=== PATIENT | male | born 1955 | race Caucasian/White ===

== ENCOUNTER 2019-08-24 18:33 | Inpatient (IN) | payer MEDICARE ==
[~2019-08-24] VITALS: Ht 182.9 cm; Wt 85.3 kg
[~2019-08-24 18:33] MED LIST: ACETAMINOPHEN-1 EAC1 PO; ASPIR 8181 MG; ATIVAN0.5 MG PO; AUGMENTIN 875-1 EACH PO; B12; BACTRIM DS TAB1 EACH PO; BACTROBAN22 GM TP; CALCIUM PO; CINNAMON; CIPRO500 MG PO; CLEOCIN HCL150 MG PO; COMBIVENT RESPIM4 GM IH; FISH OIL; FLEXERIL; HYDROCODON-ACE1 EAC7 PO; HYDROCODONE; HYDROCODONE-AP1 EAC6 PO; LATUDA80 MG PO; LEXAPRO 10 MG T10 M1; LIPITOR 20 MG T20 M1; LISINOPRIL5 MG PO; LOPRESSOR50 MG; METFORMIN HCL500 MG PO; MULTIVITAMIN; SYMBICORT160 MCG/4. INH; TESSALON PERLE100 MG PO; TRAMADOL 50 MG50 MG; TRILEPTAL600 MG PO; VALIUM5 MG; VENTOLIN HFA 1818 GM INH
[2019-08-24 19:00] LABS: ABSOLUTE BASOPHILS 0.1 thou/uL (0.0-0.2); ABSOLUTE EOSINOPHILS 0.2 thou/uL (0.0-0.7); ABSOLUTE LYMPHOCYTES 1.2 thou/uL (0.8-5.3); ABSOLUTE MONOCYTES 0.4 thou/uL (0.0-1.2); ABSOLUTE NEUTROPHILS 7.2 thou/uL (1.6-8.1); HEMATOCRIT 41.1 % (42.0-52.0); HEMOGLOBIN 14.3 gm/dL (14.0-18.0); LYMPHOCYTES 12.9 %; MCH 29.4 pg (26.0-34.0); MCHC 34.9 g/dL (28.0-37.0); MCV 84.3 fL (80.0-100.0); MONOCYTES 4.2 %; MPV 7.4 fl. (7.2-11.1); NUCLEATED RBCS 0 /100WBC; PLATELET COUNT* 251 thou/uL (150-400); POLYS 79.9 %; RBC 4.87 mil/uL (4.50-6.00)
[2019-08-24 19:07] LABS: CALCIUM 8.6 mg/dL (8.5-10.1); CREATININE 1.9 mg/dL (0.6-1.3); POTASSIUM 3.9 mmol/L (3.5-5.1)
[2019-08-24 19:10] LABS: APTT 26.9 Seconds (25.0-31.3); PROTIME 9.8 Seconds (9.20-11.50)
[2019-08-24 19:12] LABS: ALBUMIN 3.1 g/dL (3.4-5.0); TOTAL BILIRUBIN 0.3 mg/dL (<0.1-1.0); TOTAL PROTEIN 6.3 g/dL (6.4-8.2)
[2019-08-24 19:32] VITALS: BP 228/134
[2019-08-24 20:26] LABS: CHOLESTEROL 224 mg/dL (<200); HDL CHOLESTEROL 51 mg/dL (>40); LDL CHOLESTEROL 148 mg/dL (<100); TC:HDL 4.4 Ratio (Not establshd); TRIGLYCERIDE 125 mg/dL (<150); VLDL 25 mg/dL (<40)
[2019-08-24 20:31] LABS: SERUM ASSESSMENT Clear
[2019-08-24 23:07] LABS: URINE BILIRUBIN NEGATIVE (Negative); URINE BLOOD TRACE (Negative); URINE CLARITY CLEAR; URINE COLOR YELLOW; URINE GLUCOSE-RANDOM 1+ (Negative); URINE KETONES NEGATIVE (Negative); URINE LEUKOCYTES NEGATIVE (Negative); URINE NITRITE NEGATIVE (Negative); URINE PROTEIN 3+ (Negative); URINE UROBILINOGEN 0.2 E.U./dl (0.2-1.0)
[2019-08-24 23:17] VITALS: BP 168/79
[2019-08-24 23:20] LABS: COARSE GRANULAR CASTS 0-3 Few /LPF (None Seen); CRYSTALS None Seen /LPF (None Seen); FINE GRANULAR CASTS 0-3 Few /LPF (None Seen); HYALINE CASTS 0-3 Few /LPF (None Seen); MUCUS 4-6 Moderate strn/LPF (None Seen); SQUAMOUS 0-3 Few /LPF (0-3); URINE RBC 3-10 Few /HPF (0-2); URINE WBC 0-5 Rare /HPF (0-5)
[2019-08-25 03:59] VITALS: BP 159/107
[2019-08-25 07:15] VITALS: BP 144/93
[2019-08-25 10:28] VITALS: BP 188/89
--- NOTE | 2019-08-25 10:35 | EKG ---
[place] [address] ELECTROCARDIOGRAM REPORT Name: SANDY DOUGHERTY III Room: [place] [address] ADM IN .R.#: [id number] Admission: 08/24/19 Attend Phys: Elza Chavez MD Discharge: Date of : 57 Report #: [id number] THIS REPORT FOR: //name// [facility] ED Test Date: 2019-08-24 Test Time: 19:13:34 Pat Name: SANDY DOUGHERTY Department: Room: [facility] Gender: M Wringer Machine Operator: [place] : 1955 Requested By: Booker Mcdonnell Order Number: [id number] MD: Adelfo Moralez Measurements Intervals [place] Rate: 78 P: 72 VT: 190 QRS: -67 QRSD: 100 T: 79 QT: 415 QTc: 473 Interpretive Statements Sinus rhythm Left anterior fascicular block No previous ECG available for comparison Electronically Signed On 08-25-2019 10:35:16 SCROLL SHEAR OPERATOR by Adelfo Moralez [email or web address] <ELECTRONICALLY SIGNED> By: Fe Moralez MD, [facility] 08/25/19 1035 12 12 Fe Moralez MD, [facility] /EPI
[2019-08-25 11:00] VITALS: BP 160/74
[2019-08-25 16:06] VITALS: BP 188/97
[2019-08-25 20:00] VITALS: BP 181/93
--- NOTE | 2019-08-25 20:04 | NUR ---
PT ARRIVED TO ROOM 209 AT APPROX 1055. PT A/O X4, HAS RIGHT SIDE WEAKNESS TO ARM AND LEG AND RIGHT FACIAL DROOP. NIH DONE CHARTED. 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 FALL PRECATUIONS IN PLACE, BED ALARM ON, CALL LIGHT IN REACH. PTS SISTER AND SON AT BEDISDE. DISCUSSED PLAN WITH PT AND FAMILY. PT BECAME UPSET AND TEARFUL THIS AFTERNOON ABOUT PROGNOSIS, PT GIVEN REASSURANCE. PRN MEDS GIVEN PER MAR FOR ANXIETY, PAIN AND ELEVATED BP. DISCUSSED WITH PHYSICIAN, NEW ORDERS RECIEVED. REPORT GIVEN TO RASHAUN CUENCA.
[2019-08-25 23:10] LABS: AMP/METHAMP Negative (Negative); BARBITURATES Negative (Negative); BENZODIAZEPINES Negative (Negative); COCAINE Negative (Negative); METHADONE Negative (Negative); OPIATES Negative (Negative); PCP Negative (Negative); THC POSITIVE (Negative)
[2019-08-26] VITALS (11 sets, daily range): BP systolic 121–228; BP diastolic 48–104
[2019-08-26 02:06] LABS: GLYCOHEMOGLOBIN (HGB A1C) 6.7 % (4.8-5.6)
--- NOTE | 2019-08-26 02:24 | NUR ---
ASSUMED CARE OF PATIENT AT 1900. BP REMAINS ELEVATED, HOWEVER WITHIN PARAMETERS OF PHYSICAN ORDERS. SON AT BEDSIDE. STATES HE IS VERY CONCERNED, PATIENT HAS DECLINED EVEN MORE. EDUCATION ABOUT MEDICATION AND SEEING A PHYSICIAN REGULARLY DISCUSSED. PRIMARY PHYSICIAN RETIRED, IS IN NEED OF A NEW ONE. WAS ABLE TO GET SOME SLEEP. WORKING TOWADS POC GOALS.
--- NOTE | 2019-08-26 12:49 | NUR ---
Pt is A&O. Spoke with Pt and sister in room. Pt normally resides at home alone. Has been independent. Pt uses a cane PRN for mobility, has a left leg prothesis. Has a wc that he uses PRN. Hx of HH. CM discussed probable need for acute rehab vs SNF at [place]. Sister wants to get Pt moved to a one level apartment/studio without stairs, CM provided sister with a list of senior/low income housing options. CM also discussed other possible needs that Pt may have dependent upon the progress that he makes. Pt has a son in the area that is supportive, sister lives in [place] and involved in POC. Following.
--- NOTE | 2019-08-26 14:41 | NUR ---
Dividend Deposit Voucher Clerk: Met patient and son today. Discussed stroke program. Will follow, patient was too sleepy to meet with.
--- NOTE | 2019-08-26 17:14 | 2DMMODE ---
[place] [address] 2 D/M-MODE ECHOCARDIOGRAM Name: SANDY DOUGHERTY III Room: [address] IN .R.#: [id number] Admission: 08/24/19 Attend Phys: Elza Chavez, Discharge: Date of : 57 Date of Service: 08/26/19 1713 Report #: [id number] THIS REPORT FOR: //name// APPROVED REPORT Study performed: 08/26/2019 09:10:29 EXAM: Comprehensive 2D, Doppler, and color-flow Echocardiogram BSA: 2.02 HR: 64 bpm BP: 193/91 mmHg Other Information Study Quality: Fair Indications CVA/TIA Echo Enhancing Agent Indication: Rule out Shunt Agent(s) / Amount(s) Used: Agitated Saline cc 2D Dimensions IVSd: 11.31 (7-11mm) LVOT Diam: 20.70 (18-24mm) LVDd: 45.17 mm PWd: 10.90 (7-11mm) Ascending Ao: 30.46 (22-36mm) LVDs: 29.63 (25-40mm) Aortic Root: 29.32 mm Volumes Left Atrial Volume (Systole) LA ESV Index: 13.50 mL/m2 Aortic Valve AoV Peak Pablo.: 1.27 m/s AO Peak Gr.: 6.41 mmHg LVOT Max P.19 mmHg AO Mean Gr.: 3.80 mmHg LVOT Mean P.27 mmHg LVOT Max V: 0.74 m/s AO V2 VTI: 22.36 cm LVOT Mean V: 0.53 m/s FEDERICO (VTI): 3.42 cm2 LVOT V1 VTI: 22.75 cm Mitral Valve E/A Ratio: 0.74 MV Decel. Time: 236.20 [place] [address] 2 D/M-MODE ECHOCARDIOGRAM Name: SANDY DOUGHERTY III Room: [address] IN [facility].#: [id number] Admission: 08/24/19 Attend Phys: Elza Chavez, Discharge: Date of : 57 Date of Service: 08/26/19 1713 Report #: [id number] MV E Max Pablo.: 0.60 m/s MV PHT: 68.50 ms MVA (PHT): 3.21 cm2 TDI E/Lateral E': 12.00 E/Medial E': 8.57 Medial E' Pablo.: 0.07 m/s Lateral E' Pablo.: 0.05 m/s Pulmonary Valve PV Peak Pablo.: 1.08 m/s PV Peak Gr.: 4.65 mmHg Tricuspid Valve RAP Estimate: 5.00 mmHg TR Peak Gr.: 11.58 mmHg RVSP: 16.58 mmHg PA Pressure: 16.58 mmHg Left Ventricle The left ventricle is normal size. There is normal LV segmental wall motion. Mild concentric left ventricular hypertrophy. Left ventricular systolic function is normal. The left ventricular ejection fraction is within the normal range. LVEF is 60-65%. Grade I - abnormal relaxation pattern. Right Ventricle The right ventricle is normal size. The right ventricular systolic function is normal. Atria The left atrium size is normal. Injection of bubbles documented no interatrial shunt. The right atrium size is normal. Aortic Valve Mild aortic valve sclerosis. No aortic regurgitation is present. There is no aortic valvular stenosis. Mitral Valve There is mitral annular calcification. Mitral valve leaflets are calcified. There is no mitral valve regurgitation noted. No evidence of mitral valve stenosis. Tricuspid Valve The tricuspid valve is normal in structure. Trace tricuspid regurgitation. [place] [address] 2 D/M-MODE ECHOCARDIOGRAM Name: LADONNASANDY III Room: [address]#: [id number] Admission: 08/24/19 Attend Phys: Elza Chavez, Discharge: Date of : 57 Date of Service: 08/26/19 1713 Report #: [id number] The pulmonary valve is normal in structure. There is no pulmonic valvular regurgitation. Great Vessels The aortic root is normal in size. IVC is normal in size and collapses >50% with inspiration. Pericardium There is no pericardial effusion. <Conclusion> The left ventricle is normal size. Mild concentric left ventricular hypertrophy. Left ventricular systolic function is normal. The left ventricular ejection fraction is within the normal range. LVEF is 60-65%. Grade I - abnormal relaxation pattern. The right ventricle is normal size. The left atrium size is normal. Mild aortic valve sclerosis. No aortic regurgitation is present. There is no aortic valvular stenosis. There is mitral annular calcification. Mitral valve leaflets are calcified. There is no mitral valve regurgitation noted. No evidence of mitral valve stenosis. The tricuspid valve is normal in structure. IVC is normal in size and collapses >50% with inspiration. There is no pericardial effusion. There is normal LV segmental wall motion. Injection of bubbles documented no interatrial shunt. <ELECTRONICALLY SIGNED> By: Jarret Thorne MD, FACC 08/26/19 171 12 12 Jarret Thorne MD, FACC /INF
--- NOTE | 2019-08-26 19:22 | NUR ---
ASSUMED PT CARE AT 0700, A&O X4, NIH=8, ELECTRONIC WARFARE OFFICER TRACING SINUS RHYTHM, FULL ASSESSMENT CHARTED. PT HAD EPISODE C/O 8/10 CHEST PAIN AT 1552, BP 216/101, HR 70, EKG NORMAL, NITRO GIVEN X1 AT 1555. AT 1555 PTS PAIN WAS 7/10 WITH BP 191/92 HR 70, SECOND DOSE NITRO GIVEN AT 1600. BP 165/53, HR 72 PAIN DOWN TO 6/10. PTS BP CONT TO TREND DOWN WITH NO MORE C/O CHEST PAIN. PTS BP MONITORED, DR EAST AND CARDIOLOGY NOTIFIED, HOURLY ROUNDING COMPLETED.
[2019-08-27 00:27] VITALS: BP 131/69
[2019-08-27 04:39] VITALS: BP 127/70
--- NOTE | 2019-08-27 05:17 | NUR ---
ASSUMED CARE OF PATIENT AT 1900. BP WITHIN MUCH BETTER RANGE. SPEECH IS BECOMING MORE CLEAR. IS VERY TEARFUL, WONDERING HOW HE IS GOING TO CARE FOR HIMSELF. RIGHT SIDE REMAINS COMPLETELY FLACCID. MAX ASSIST OF 3 PEOPLE TO GET HIM TO BSC. NO BM. COMPLETE BATH GIVEN, WELL FACIAL SHAVE. NO FAMILY PRESENT TONIGHT. PROGRESSING TOWARDS POC GOALS.
[2019-08-27 05:21] LABS: ABSOLUTE BASOPHILS 0.1 thou/uL (0.0-0.2); ABSOLUTE EOSINOPHILS 0.1 thou/uL (0.0-0.7); ABSOLUTE LYMPHOCYTES 1.2 thou/uL (0.8-5.3); ABSOLUTE MONOCYTES 0.6 thou/uL (0.0-1.2); ABSOLUTE NEUTROPHILS 6.4 thou/uL (1.6-8.1); BASOPHILS 0.8 %; EOSINOPHILS 1.5 %; HEMATOCRIT 36.4 % (42.0-52.0); HEMOGLOBIN 12.7 gm/dL (14.0-18.0); LYMPHOCYTES 14.2 %; MCH 29.7 pg (26.0-34.0); MCV 84.9 fL (80.0-100.0); MONOCYTES 7.2 %; MPV 7.5 fl. (7.2-11.1); NUCLEATED RBCS 0 /100WBC; PLATELET COUNT* 254 thou/uL (150-400); POLYS 76.3 %; RBC 4.29 mil/uL (4.50-6.00); RDW-CV 14.3 % (10.5-14.5); WBC 8.3 thou/uL (4.0-11.0)
[2019-08-27 05:37] LABS: CALCIUM 7.9 mg/dL (8.5-10.1); CREATININE 1.9 mg/dL (0.6-1.3); POTASSIUM 3.8 mmol/L (3.5-5.1)
[2019-08-27 08:00] VITALS: BP 189/90
[2019-08-27 11:31] VITALS: BP 159/73
--- NOTE | 2019-08-27 14:02 | NUR ---
Rehab consult pending, therapies to see today. If Pt does not qualify for acute rehab, CM to contact [facility] to see if they can accept vs SNF. Tele psych consult completed. Pt medically stable for dc.
--- NOTE | 2019-08-27 14:32 | EKG ---
[place] [address] ELECTROCARDIOGRAM REPORT Name: SANDY DOUGHERTY III Room: [address] ADM IN M.R.#: [id number] Admission: 08/24/19 Attend Phys: Elza Chavez MD Discharge: Date of : 57 Report #: [id number] THIS REPORT FOR: //name// [facility] Test Date: 2019-08-26 Test Time: 15:54:52 Pat Name: SANDY DOUGHERTY Department: Room: [address] Gender: M Math Tutor: J : 1955 Requested By: Elza Chavez Order Number: [id number] Reading MD: Payam Jain Measurements Intervals [place] Rate: 69 P: 72 NM: 195 QRS: -64 QRSD: 96 T: 105 QT: 432 QTc: 463 Interpretive Statements Sinus rhythm Left anterior fascicular block Abnormal R-wave progression, late transition Nonspecific T abnormalities, lateral leads Baseline wander in lead(s) V1 Compared to ECG 08/24/2019 19:13:34 T-wave abnormality now present Electronically Signed On 08-27-2019 14:31:20 TEACHING ASSISTANT by Payam Jain [email or web address] <ELECTRONICALLY SIGNED> By: Payam Jain MD, FACC 08/27/19 1431 1554 1554 Payam Jain MD, FACC /EPI
--- NOTE | 2019-08-27 18:30 | NUR ---
ASSUMED PT CARE AT 0700, PT A&O X4, VSS, RA, REPRODUCTION ARTIST TRACING SINUS RHYTHM, PT UP WITH MAX ASSIST TO CHAIR, UP GRADED TO REGULAR DIET/THIN LIQUIDS, CONT TO SHOW PROGRESS THROUGHOUT SHIFT, FULL ASSESSMENT CHARTED. PT CONT ON Q2 HOUR TURNS AND HOURLY ROUNDING, ALL COMPLETED.
[2019-08-27 20:00] VITALS: BP 145/80
[2019-08-27 23:55] VITALS: BP 145/84
[2019-08-28 04:11] VITALS: BP 144/74
--- NOTE | 2019-08-28 05:43 | NUR ---
PT CARE ASSUMED AT 1930. SAT MAINTAINED IN O2. ALERT AND ORIENTED X4. PT IS ANXIOUS. CALL LIGHT WITHIN REACH AND BED IN LOW POSITION. C/O PAIN, MEDICATION GIVEN PER EMAR. HOURLY ROUNDING DONE FOR PT SAFETY.
[2019-08-28 08:00] VITALS: BP 170/100
--- NOTE | 2019-08-28 09:32 | NUR ---
Met with patient to review stroke education. Planning to discharge to in rehab today.
--- NOTE | 2019-08-28 11:22 | NUR ---
Pt will dc to [facility] acute rehab today. Faxed dc orders. Updated Pt's son.
[2019-08-28 12:09] VITALS: BP 148/87
[2019-08-28] MEDS ORDERED: ASA81BEC PO (14:28)
[2019-08-28] MEDS ORDERED: CARVEDILOL12.5 MG PO (14:29)
[2019-08-28] MEDS ORDERED: HUMALOG100 UNIT/1 SUBQ (14:30)
[2019-08-28] MEDS ORDERED: NICOTINE TRANSD21 M1 (14:30)
[2019-08-28] MEDS ORDERED: LIPITOR80 MG PO (14:30)
[2019-08-28] MEDS ORDERED: PLAVIX 75 MG TA75 MG PO (14:31)
[2019-08-28] MEDS ORDERED: PROCARDIA XL60 MG PO (14:31)
[2019-08-28] MEDS ORDERED: ABILIFY 5 MG TAB5 M1 PO (14:32)
[2019-08-28 14:33] VITALS: BP 148/87
[2019-08-28 16:00] VITALS: BP 149/90
--- NOTE | 2019-08-28 19:00 | NUR ---
ASSUMED PT CARE AT 0700, PT A&O X4, RA, NANNY BABYSITTER TRACING SINUS RHYTHM, FULL ASSESSMENT ASS CHARTED. PT WAS TRANSFERRED TO IN PATIENT REHAB UNIT, FAMILY NOTIFIED, REPORT GIVEN TO BANG PARHAM. IV AND NANNY BABYSITTER REMOVED, ALL BELONGINGS SENT WITH PT. Q 2 HOUR TURN AND HOURLY ROUNDING COMPLETED.
== END 2019-08-28 19:01 | DRG 65 ==
LOC: M.ERS 18:33 → M.2W 21:07 → M.TBA-ER 21:07 → M.2W 08-25 10:27
PROVIDERS: Emergency Medicine; Family Medicine; Internal Medicine; ADMIT Internal Medicine
DX: I63.9 Cerebral infarction, unspecified (principal); N17.9 Acute kidney failure, unspecified; I16.1 Hypertensive emergency; I69.351 Hemiplegia and hemiparesis following cerebral infarction affecting right dominant side; F31.9 Bipolar disorder, unspecified; F17.210 Nicotine dependence, cigarettes, uncomplicated; I25.10 Atherosclerotic heart disease of native coronary artery without angina pectoris; E78.5 Hyperlipidemia, unspecified; I10 Essential (primary) hypertension; E11.51 Type 2 diabetes mellitus with diabetic peripheral angiopathy without gangrene; R29.704 NIHSS score 4; R82.71 Bacteriuria; F12.90 Cannabis use, unspecified, uncomplicated; R00.1 Bradycardia, unspecified; I65.21 Occlusion and stenosis of right carotid artery; N28.9 Disorder of kidney and ureter, unspecified; Z89.512 Acquired absence of left leg below knee; Z98.84 Bariatric surgery status; Z95.5 Presence of coronary angioplasty implant and graft; Z91.14 Patient's other noncompliance with medication regimen; Z82.49 Family history of ischemic heart disease and other diseases of the circulatory system

== ENCOUNTER 2019-08-28 15:39 | Inpatient (IN) | payer MEDICARE ==
[~2019-08-28] VITALS: Ht 182.9 cm; Wt 101.5 kg
[~2019-08-28 15:39] MED LIST changes: +ABILIFY 5 MG TAB5 M1 PO; +ASA81BEC PO; +CARVEDILOL12.5 MG PO; +HUMALOG100 UNIT/1 SUBQ; +LIPITOR80 MG PO; +NICOTINE TRANSD21 M1; +PLAVIX 75 MG TA75 MG PO; +PROCARDIA XL60 MG PO
[2019-08-28 19:20] VITALS: BP 148/90
--- NOTE | 2019-08-28 23:52 | NUR ---
PATIENT ADMITTED TO ROOM 322 AT 1900 PER BED. HAS RESTED IN BED SINCE. NEEDS MAX ASSIST TURNING. RT SIDE FLACCID. HAS HX OLD LT BKA AND HAS PROTHESIS IN ROOM. HAS BRUISING TO BOTTOM AND BACK FROM WHEN HE FELL AGAINST HIS OVEN AT HOME DURING HIS STROKE. TAKES MEDS WHOLE WITH APPLESAUCE. HAD ONE STICK TO RIGHT SIDE OF TONGUE AND NEEDED CUEING TO SWALLOW IT. STATES HIS RIGHT SIDE OF HIS TONGUE FELLS "NUMB". DURING ADMISSION ASSSESSMENT, PATIENT ADMITTED TO USING "POT" TO MANAGE PAIN RATHER THAN NARCOTICS, AND HE WEANED HIMSELF OFF PAIN MEDS USING POT. STATES THAT HE HAS NOT BEEN TO A PHYSICIAN FOR A FEW YEARS, AND ADMITS TO NOT TAKING CARE OF HIMSELF OR HIS DIABETES. EMOTIONAL LABILITY NOTED, CRYING AT TIMES. SPOKE ON PHONE WITH EX , SPEECH HAS SOME SLIGHT SLURRING, BUT PATIENT MAKES NEEDS KNOWN. VOIDS PER URINAL, BUT HAS BEEN SPILLING THE URINAL AND WAS INCONTINENT NOT GETTING THE URINAL IN PLACE IN TIME. DURING ASSESSMENT PATIENT DENIES CURRENT SUICIDAL THOUGHTS, BUT STATED THAT HE WISHED HE COULD RIGHT AFTER HIS STROKE AND HAD SUICIDAL THOUGHTS WHILE HE WAS LYING ON THE FLOOR BEFORE HELP ARRIVED. HE SAID THAT HIS PLAN WAS TO USE A KNIFE AND MOTIONED TO HIS ABDOMINAL AREA. HE SAYS HE CURRENTLY IS NOT SUICIDAL, BUT THESE THOUGHTS COME IN WAVES HE IS BIPOLAR. WILL BE STARTING ON NEW MED IN THE MORNING. TELE PSYCH WAS CONSULTED WHILE HE WAS ON THE TELEMETRY FLOOR. DRAFTER DETAIL NOTIFIED. THIS NURSE WAS INSTRUCTED TO ASSESS FOR SUICIDAL THOUGHTS AND NOTIFY DRAFTER DETAIL IF ANY OCCURED. PATIENT WAS INSTRUCTED TO CALL WITH ANY SUICIDAL THOUGHTS, AND HE PROMISED TO DO SO. PATIENT PLEASED WITH STARTING NEW MED IN THE MORNING. TURNED OFTEN IT IS PAINFUL TO LIE ON HIS BACK DUE TO THE BRUISING FROM HIS FALL. EDUCATED ON REHAB ROUTINE, ASSESSMENT DONE. HOURLY ROUNDS CONTINUE. BED ALARM ON. CALL LITE IN REACH.
--- NOTE | 2019-08-29 00:20 | NUR ---
C/O SWEATING, BLOOD SUGAR CHECKED. 59. GIVEN PEANUT BUTTER, BRITTNEY CRACKERS AND APPLE JUICE. WILL CONTINUE TO MONITOR.
--- NOTE | 2019-08-29 00:22 | NUR ---
C/O FEELING HOT AND SWEATY. HAD ONE TUB OF APPLESAUCE AT HS WITH BLOOD SUGAR OF 225 AT HS. BLODO SUGAR CHECKED AT THIS TIME. WAS 59. GIVEN PEANUT BUTTER, BRITTNEY CRACKERS, AND APPLE JUICE AT THIS TIME. WILL CONTINUE TO MONITOR.
--- NOTE | 2019-08-29 00:26 | NUR ---
ALSO HAS A MOBILE CARDIAC OUTPATIENT TELEMETRY PATCH SYSTEM APPLIED TO MID STERNUM. BOX AT NURSE STATION WITH MORE INFO. NOTE ON BOX SAYS TO RETURN IT ON 09/25/19. PATIENT DOES NOT KNOW MUCH ABOUT DEVICE. WILL PASS ONTO DAY SHIFT NEED FOR MORE EDUCATION.
--- NOTE | 2019-08-29 01:09 | NUR ---
BLOOD SUGAR 218. RESTING AT PRESENT.
[2019-08-29 04:00] LABS: HEMATOCRIT 35.4 % (42.0-52.0); HEMOGLOBIN 12.5 gm/dL (14.0-18.0); MCH 29.9 pg (26.0-34.0); MCHC 35.2 g/dL (28.0-37.0); MCV 84.7 fL (80.0-100.0); MPV 7.4 fl. (7.2-11.1); RBC 4.18 mil/uL (4.50-6.00); RDW-CV 14.1 % (10.5-14.5); WBC 6.9 thou/uL (4.0-11.0)
[2019-08-29 04:20] LABS: CALCIUM 7.9 mg/dL (8.5-10.1); POTASSIUM 3.7 mmol/L (3.5-5.1)
--- NOTE | 2019-08-29 06:32 | NUR ---
SLEPT MUCH OF THE NIGHT. PREFERRED TO BE LYING IN CHACON'S POSITION DUE TO PAIN IN BACK WHERE HE FELL AT HOME DURING HIS STROKE. PATIENT HAS LABILE EMOTIONS, AND TEARFUL AT TIMES. DENIES SUICIDAL THOUGHTS, STATES HE IS OVERWHELMED BY ALL HE "HAS TO DO." ENCOURAGEMENT GIVEN. GAVE HIS FIRST DOSE OF ABILIFY THIS MORNING (DUE AT 0900 FIRST DOSE) BECAUSE HE WAS HOPING IT WOULD DIMINISH HIS ANXIETY. WILL PASS THIS ON TO ONCOMING SHIFT. HOURLY ROUNDS CONTINUE. BED ALARM ON. CALL LITE IN REACH.
[2019-08-29 07:30] VITALS: BP 204/96
[2019-08-29 08:15] VITALS: BP 199/103
[2019-08-29 09:05] VITALS: BP 181/85
--- NOTE | 2019-08-29 13:36 | NUR ---
sister voices consern that pt has made statments of wanting to kill self. sister states pt has said, when i get the change i'm killing myself. i'm done. pt now in therapy with pt.
--- NOTE | 2019-08-29 13:47 | NUR ---
i have talked to pt in private and he tells me he was just saying he wanted to kill himself to aggrivate his sister and he has been stressfull today with starting therapy and understanding program. tele psych report done yesterday on tele floor before transferr to rehab unit states no acute risk at time of assesment see documentation in chart.i have discussed this with supervisor functional testing siomara badilloemployee services manager all yusuf. pt now working with ot. notified and comming to see pt.
[2019-08-29 14:20] VITALS: BP 185/88
--- NOTE | 2019-08-29 14:34 | NUR ---
Nutrition: pt admit to [facility] s/p CVA. Pt reported possible wt loss of about 10 lb in past 6 months related to living by himself and not caring about he eats. Pt reported appetite is somewhat better here. Would like Glucerna BID. Meds and labs reviewed. Lt BKA noted, hx of bariatric surgery. Assess at mild nutrition risk.
--- NOTE | 2019-08-29 16:18 | NUR ---
pt denies wanting to do harm to self. has been here and talked to pt.pt given dulcolax supp with no results yet.pt uses urinal and has spilled x2, pt reports having difficulty managing full urinal and is reminded to call for assist as needed.pt was placed to bed this afternoon per gina lift.bed alarm on. pt turned and repositioned q2 hour and prn. pt is alert and orientated.
--- NOTE | 2019-08-29 17:30 | NUR ---
SW met with pt sister and with pt to complete initial assessment, introduce self, and SW role on inpt rehab. Pt alert, oriented. Pt lives at home alone. Pt sister shared that she expects pt to need to move to LTC facility instead of apt/sr housing. Pt said his goal would be able to return home. Pt has grab bars, shower chair, RW, can, wc, leg prosthesis. Pt has hx of HH...unknown agency. SW provided sister list of LTC facilities in case that dc plan is necessary and discussed financial assistance and applying for Medicaid. SW provided welcome packet and pt signed irf bette consent form that is now in pt chart. SW to continue to follow to assist with safe dc planning.
[2019-08-29 20:18] VITALS: BP 182/95
--- NOTE | 2019-08-30 04:57 | NUR ---
ASSUMED PT CARE AT 1930. PT ALERT AND ORIENTED X4, POLITE AND COOPERATIVE WITH CARES. PT TAKES PILLS WHOLE IN APPLESAUCE. VOIDS PER URINAL. PRN TYLENOL AND ATIVAN GIVEN. BRUISING TO BACK/BUTTOCKS. PT TURNED WHEN AGREEABLE. ONE MUCOUSY STOOL THIS SHIFT. PT AWAKE OFF AND ON ALL NIGHT, WATCHING TELEVISION. SNACK GIVEN. PT STATED HE FELT TRAPPED IN BED, EXPRESSED HIS FRUSTRATION WITH HIS SITUATION AND SAID SEVERAL TIMES THAT HE HAD NOT TAKEN CARE OF HIMSELF. SPOKE AT LENGTH ABOUT HIS TWO FAILED MARRIAGES AND HIS REGRETS. USES CALL LIGHT APPROPRIATELY. CALL LIGHT AND FREQUENTLY USED ITEMS IN REACH. HOURLY ROUNDING IN PROGRESS, WILL CONTINUE TO MONITOR.
[2019-08-30 08:19] VITALS: BP 195/90
--- NOTE | 2019-08-30 10:54 | CON ---
[address] [address] CONSULTATION Name: SANDY DOUGHERTY III Room: [address] IN M.R.#: [id number] Admission: 08/28/19 Attend Phys: Wisam Barrera MD Discharge: Date of : 57 Report #: [id number] THIS REPORT FOR: //name// CC: FAM physician/PCP Wisam Barrera DATE OF SERVICE: 08/29/2019 REQUESTING PHYSICIAN: Wisam Barrera MD. REASON FOR CONSULTATION: Chronic kidney disease and recent acute kidney injury, also uncontrolled hypertension. HISTORY OF PRESENT ILLNESS: The patient is a 64-year-old gentleman who was transferred here from the acute hospital. The patient had a stroke recently. He has very uncontrolled hypertension. He has diabetes, peripheral artery disease and ongoing tobaccoism. His creatinine while he was in the hospital was around 2 and it is stage 2, it is now is 2.0, creatinine in 2015 was 1.3, then in 2016, it was 1.1, but his blood pressure has not been controlled for the last several years, so it is quite possible that creatinine of 2 is his baseline now. SOCIAL HISTORY: Positive for tobaccoism. FAMILY HISTORY: Noncontributory. MEDICATIONS: Reviewed. REVIEW OF SYSTEMS: Positive for right-sided paralysis. He denies chest pain, shortness of breath, nausea or vomiting. Rest of the systems reviewed and negative. PHYSICAL EXAMINATION: GENERAL: He is awake, alert, oriented. VITAL SIGNS: Blood pressure is 180/85, heart rate 68, afebrile. HEENT: Pupils are round. NECK: Supple. LUNGS: Clear. CARDIOVASCULAR: Regular rate. ABDOMEN: Soft. EXTREMITIES: He has right-sided paralysis. He also has a left below knee amputation. ASSESSMENT: 1. Chronic kidney disease stage 3, most likely due to uncontrolled hypertension. Cannot completely rule out acute competent, he had acute kidney injury that [place] [address] CONSULTATION Name: SANDY DOUGHERTY ALIZA Room: [address] IN [facility]#: [id number] Admission: 08/28/19 Attend Phys: Wisam Barrera MD Discharge: Date of : 57 Report #: [id number] 2. Uncontrolled hypertension. 3. Diabetes mellitus type 2. 4. Peripheral artery disease. 5. Tobaccoism. 6. History of cerebrovascular accident. PLAN: 1. Increase his Coreg to 12.5 mg twice a day and continue with Procardia. 2. Monitor his blood pressure. 3. A 2 sodium restriction in his diet. 4. Counseling to stop smoking. I discussed this case with Dr. Barrera. <ELECTRONICALLY SIGNED> By: Lennox Mayberry MD 08/30/19 1054 1020 [id number] Neo Mayberry MD /nt
--- NOTE | 2019-08-30 17:48 | NUR ---
PT HAS HAD TEARFULLNESS EARLIER THIS MORNING AND WAS GIVEN LORAZEPAM WITH GOOD EFFECT TODAY. PRN TYLENOL GIVEN FOR LOW BACK PAIN WITH GOOD EFFECT. PT TRANSFERRS WITH NURSING WITH [facility] IS UP TO W/C TO DINNINGROOM FOR SUPPER.PT IS CONTINENT OF BLADDER USEING URINAL BUT HAS TO BE PLACED IN BED AND IS UNABLE TO VOID WHILE UP IN W/C. NO BM TODAY. PT HAS TAKEN SHOWER WITH OT TODAY AND FEELS MUCH BETTER.PT HAS PRAFO BOOT FOR RT. HEAL AND WORE IT FOR A SHORT TIME THEN BECAME HOT. PT IS ALERT AND ORIENTATED AND HAS MADE NO COMMENTS ABOUT HARMING SELF AND DENIES SUCH.PT HAS BEEN ABLE TO FEED SELF AFTER CARTONS OPENED AND MEATS CUT.PT USUALLY PLESANT BUT DOES EXPRESS FEELING LIKE HE DOES NOT GET ENOUGH INFORMATION.
[2019-08-30 20:00] VITALS: BP 164/74
--- NOTE | 2019-08-30 21:41 | NUR ---
ASSUMED CARE AT 1930. PATIENT RESTING IN W/C. MCOT PATCHED CHANGED AT CHANGE OF SHIFT BECAUSE IT WAS BEEPING. ASSISTED TO BED WITH TWO PEOPLE, PER STONE LIFT. VOIDED ONCE IN W/C AND SPILLED URINAL. PATIENT CLEANED SELF. TAKES PILLS WHOLE IN APPLESAUCE. HAD REST OF TUB OF APPLESAUCE, FOUR BRITTNEY CRACKERS WITH PEANUT BUTTER, AND APPLE JUICE FOR HS SNACK. REPORTS LABILE EMOTIONS, BUT DENIES SUICIDAL THOUGHTS. REFUSED AMBIEN AT HS. RT SIDE FLACCID, ARM AND LEG SUPPORTED ON PILLOWS. IS RIGHT HANDED, BUT USES LT HAND FOR FEEDING SELF. HOURLY ROUNDS CONTINUE. BED ALARM ON. CALL LITE IN REACH.
[2019-08-31 00:28] VITALS: BP 140/86
[2019-08-31 05:40] VITALS: BP 146/84
--- NOTE | 2019-08-31 06:03 | NUR ---
SLEPT FOR PART OF THE SHIFT. WORE PRAFO BOOT ABOUT 6 HOURS. C/O MAKING IT FEEL LIKE HIS LEG IS HOT. SOME SPONEANEOUS MOVEMENT NOTED TO RLE. TEARFUL ONLY ONCE TONIGHT. REHAB ROUTINES REINFORCED. TAKES PILLS WHOLE WITH WATER IF THEY ARE SMALL, OTHERWISE WITH APPLESAUCE. HAD ANOTHER SNACK AROUND 0445. TURNING SELF TO RIGHT SIDE. HOURLY ROUNDS CONTINUE. BED ALARM ON. CALL LITE IN REACH.
[2019-08-31 07:56] VITALS: BP 166/86
[2019-08-31 09:20] LABS: HEMATOCRIT 37.9 % (42.0-52.0); HEMOGLOBIN 13.2 gm/dL (14.0-18.0); MCH 29.5 pg (26.0-34.0); MCHC 34.7 g/dL (28.0-37.0); MCV 84.9 fL (80.0-100.0); MPV 7.4 fl. (7.2-11.1); RBC 4.47 mil/uL (4.50-6.00); RDW-CV 14.3 % (10.5-14.5)
[2019-08-31 09:30] LABS: CALCIUM 7.9 mg/dL (8.5-10.1); CREATININE 2.3 mg/dL (0.6-1.3); POTASSIUM 4.2 mmol/L (3.5-5.1)
--- NOTE | 2019-08-31 15:40 | NUR ---
ASSUMED CARE AT 0730. HX OF CVA RT. SIDE FLACCID. HX OF OLD L BKA. HAS PROSTHETIC. KEVIN NOTIFIED OF NEED FOR INNER AND OUTER SLEEVE FOR PROSTHETIC. NEED TO FAX AGAIN MON MESSAGE LEFT FOR KEVIN PER PHONE CALL VOICE MESSAGE. PT. TEARFULL THIS A.M. GAVE ANXIETY MED AND GABAPENTIN PT. PARTICIPATED WITH P.T. AND O.T. IN A.M. BECAME SLEEPY AFTER THERAPIES AND SLEPT TILL LUNCH. REQUESTED WE DECREASE GABAPENTIN DOSE FROM DR. ALDANA AND CONSULTED KEVIN RE INNER AND OUTER SLEEVE FOR PROSTHETIC.
--- NOTE | 2019-08-31 16:05 | NUR ---
PT. WAS UP IN W/C FOR 1 HR. WITH NURSING AND P.T. PER STONE LIFT. THEN BACK INTO BED TURNED SIDE TO SIDE EVERY [address] ALDANA HERE LATER AFTERNOON. APPETITE GOOD FEEDS SELF WITH SET UP LEFT HAND. TAKES MEDS WHOLE WITH APPLESAUCE. THERAPIES THIS AFTERNOON. PLEASANT COOPERATIVE COURTEOUS WITH THIS STAFF MEMBER. VOIDED 700CCS PER URINAL AT 1200. NO VISITORS THIS DAY OF YET.
[2019-08-31 17:32] VITALS: BP 159/84
--- NOTE | 2019-08-31 18:29 | NUR ---
PT. IS OPEN TO TAKING AN ANTIDEPRESSANT TO ASSIST WITH BIPOLAR DEPRESSION AND CVA EMOTIONAL LABILITY.
[2019-08-31 19:30] VITALS: BP 140/70
[2019-09-01] VITALS (7 sets, daily range): BP systolic 99–161; BP diastolic 48–88
--- NOTE | 2019-09-01 05:19 | NUR ---
ASSUMED CARE AT 1920. ALERT AND ORIENTED. PLEASANT. CVA WITH RIGHT SIDE FLACCID. PILLS TAKEN WHOLE IN APPLESAUCE. REQUESTED ATIVAN FOR SLEEP. TURNED ONTO SIDE WHEN AGREEABLE. USED URINAL AND NURSING EMPTIED. SLEPT MOST OF THE NIGHT. CALL LIGHT IN REACH AND BED ALARM ON.
--- NOTE | 2019-09-01 14:12 | NUR ---
ASSUMED CARE AT 0730. ALERT ORIENTED PLEASANT COOPERATIVE. HX OF CVA RT. SIDE FLACCID. ABLE TO TURN TO RT. SIDE. IN BED. UP IN W/C WITH LIFT. TOLERATED WELL X 2 HRS. DID C/O PAIN RT. HIP BACK TRANSFERRED TO BED ON RT. SIDE. TAKES MEDS WITH APPLESAUCE WITHOUT DIFFICULTY. MEDICATED WITH TYLENOL X 2 TABS. SON HERE VISITING AFTER LUNCH SISTER ALSO HERE BEFORE LUNCH. APPETITE GOOD FEEDS SELF WITH SET UP. VOIDS PER URINAL.
--- NOTE | 2019-09-01 17:54 | NUR ---
PT. HAS CONCERNS RE HIS RIGHT EAR SWELLING HEARING LOSS. SPLINTER RT. HAND. WILL PASS ON TO
--- NOTE | 2019-09-02 05:17 | NUR ---
ASSUMED CARE AT 1920. ALERT AND ORIENTED. PLEASANT BUT PT VERY TEARFUL AT TIMES. PT WORRIED ABOUT CURRENT PHYSICAL CONDITION. FEELS HE IS A BURDEN TO STAFF. ATIVAN GIVEN. C/O BACK AND RIGHT LEG ARM PAIN. NORCO GIVEN. TAKES PILLS WHOLE IN APPLESAUCE. HOLTER MONITOR IN PLACE. PT USED URINAL AND NURSING EMPTIED. DID NOT SLEEP WELL. CALL LIGHT IN REACH AND BED ALARM ON.
[2019-09-02 06:00] VITALS: BP 157/82
--- NOTE | 2019-09-02 07:28 | NUR ---
AT 0650, PT AGAIN VERY TEARFUL. THEN EXPRESSED TO [employer] INTERMODAL TRUCK DRIVER AND THIS RN THAT HE IS HAVING THOUGHTS OF STABBING HIMSELF IF HE DOESN'T GET BETTER. HE SAYS THAT HE WILL NOT ACT ON THIS BUT KEEPS HAVING THESE THOUGHTS AND IS DEPRESSED. PT ALREADY HAD TELEPSYCH EVAL ON 08/27/19 WITH SAME THOUGHTS AND WAS STARTED ON ABILFY. ATIVAN WAS GIVEN THIS AM. CONTACTED SUPERVISOR ROVING TO REPORT ABOVE. WILL CONTACT DOCTOR TO REPORT WELL. NURSE REPORT GIVEN TO JE CUENCA. WILL CONTINUE TO MONITOR.
[2019-09-02 07:58] VITALS: BP 155/79
[2019-09-02 12:00] VITALS: BP 137/65
--- NOTE | 2019-09-02 14:21 | NUR ---
ASSUMED CARE AT 0730. ALERT AND ORIENTED PLEASANT COOPERATIVE. SOME EMOTIONS EXPRESSED TO THIS STAFF RN RE FEELING HELPLESS. PREVIOUS NURSE GAVE ANTIANXIETY MED AT SHIFT CHANGE WITH SOME RELIEF NOTED. HX OF CVA RT. 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 ABLE TO TURN SELF TO RT. SIDE IN BED FOR LINEN CHANGES C/O L AND RT. BUTTOCKS PAIN MEDICATED X 1 WITH HYDROCODONE 1 TAB TAKES MEDS WITH APPLESAUCE WITHOUT DIFFICULTY. FEEDS SELF WITH SET UP DUE TO RT UE FLACCIDITY. PARTICIPATING IN THERAPIES TODAY.
--- NOTE | 2019-09-02 15:29 | NUR ---
SW was informed by pt nurse about pt request for assistance with "legal issues". SW met with pt later in the day to discuss possible resources and asked about more specific needs. Pt did not respond or elaborate and pt friend came in to visit with pt. SW to follow up tomorrow and provide community resources.
[2019-09-02 17:29] VITALS: BP 147/71
[2019-09-02 19:30] VITALS: BP 147/81
--- NOTE | 2019-09-02 22:13 | NUR ---
ASSUMED CARES AT 0. CONTACTED TELEPSYCH TO START EVALUATION. AT 2099, VIDEO PHONE CONFERENCE WAS STARTED AND COMPLETED AT 2129. RECEIVED FAX WITH RECOMMENDATIONS BY PSYCHIATRIST. RECOMMEND TO INCREASE ABILIFY DOSE TO [address] WEISS WITH ABOVE INFO. DR WEISS WILL F/U AND NO NEW ORDERS AT THIS TIME.
[2019-09-02 23:54] VITALS: BP 123/66
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
[2019-09-03 06:09] VITALS: BP 160/62
[2019-09-03 08:00] VITALS: BP 170/74
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
[2019-09-03 19:30] VITALS: BP 138/77
[2019-09-03 23:15] VITALS: BP 136/69
--- NOTE | 2019-09-04 02:27 | NUR ---
ASSUMED CARE @ 1919-09/03-.SITS ON BEDPAN HAVING BM W/ HOB UP.MOISTURE BARRIER CREAM APPLIED TO COCCYX @ 1939-PER PT'S REQUEST.RUE & RLE BOTH ELEVATED ON PILLOW.BED ALARM PUT ON @ 1939.SMALL PILLS TAKEN WHOLE ONE @ A TIME W/ H20.BIG PILLS TAKEN W/ APPLE SAUCE @ 2029.HAD SMALL BM @ 1939.2 PERSONS NEEDED TO TURN.FLACCID-RUE & RLE.PRN MOM ORAL GIVEN @ 2038-PER PT'S REQUEST.FED SELF W/ REST OF APPLE SAUCE @ 2044.INC.EXTRA LARGE SOFT BM @ 2119.SULY CARE DONE 2ND TIME @ 2119.REQUESTED ALSO SLEEPING MED.PRN AMBIEN 5 MG ORAL GIVEN @ 2130.COUGHING EPISODE X1 @ 2244-AFTER DRINKING APPLE JUICE HS SNACK.NURSE JUST EMPTIES URINAL @ NIGHT.PRN ATIVAN 1 MG ORAL GIVEN @ 50- PER PT'S REQUEST.PRAFO BOOT APPLIED TO RIGHT FOOT @ 54.ON HOURLY ROUNDS.
--- NOTE | 2019-09-04 05:33 | NUR ---
SLEEPING @ 2200 .BUT AWAKE 2300 TO 0000 & FROM 0100 TO 0200-09/04-MON.SLEPT CONTINOUSLY X 2 HOURS FROM 0300 TO 0500.CONSTANTLY VIDEOTAPE SALES REPRESENTATIVE LIGHT WHEN AWAKE.USED BEDPAN X1 FOR SMALL BM @ 1940.INC EXTRA LARGE BM X1.USED URINAL X 4 W/ SPILLS X2.HAD APPLE JUICE X2 & COOKIES W/ PEANUT BUTTER X2 @ 2230 & 0150.SENSOR BATTERY LOW @ 0100.REMOVED FROM CHEST TO CHARGE @ 0100.
[2019-09-04 05:54] VITALS: BP 168/83
[2019-09-04 07:30] VITALS: BP 156/87
--- NOTE | 2019-09-04 16:58 | NUR ---
BATSHEVA and Dr Barrera met with pt to review team conference summary and plan for pt to remain on rehab unit at least another week with team to reassess pt length of stay during team conference on next Monday. Pt okay with plan. BATSHEVA called pt son Masood to inform of team's recommendation and discussed further therapies needed as well as possible dc plans for needed assistance at dc. Pt son explained that he is unable to care for his father at dc and stated that his aunt would most likely not be able to accept pt to live with her either. BATSHEVA discussed SNF/LTC possibility if needed and will continue to follow to assist with safe dc planning.
--- NOTE | 2019-09-04 18:30 | NUR ---
PT HAD BRIEF PERIODS OF CRYING TODAY BUT WAS EASY TO REDIRECT. GOALS AND PLAN OF CARE DISCUSSED TO ENCOURAGE PT TO PARTICIPATE IN THERAPIES. FALL PRECAUTIONS AND HOURLY ROUNDING CONTINUE.
[2019-09-04 19:00] VITALS: BP 149/83
--- NOTE | 2019-09-04 22:56 | NUR ---
PT ALERT TALKATIVE. BRITTNEY CRACKERS AND APPLE SAUCE FOR HS SNACK. PT STATED I HAVE ANXIETY AND NEED SOMETHING. ATIVAN GIVEN FOR ANXIETY AND HYDROCODONE GIVEN FOR PAIN IN BACK AND R LEG. PT RESTING QUIETLY WITH EYES CLOSED.
--- NOTE | 2019-09-05 06:24 | NUR ---
PT SLEEPING OFF AND ON THROUGH OUT THE SHIFT. PAIN MEDICATION GIVEN TWICE.
[2019-09-05 07:49] VITALS: BP 145/72
[2019-09-05 14:31] VITALS: BP 118/62
--- NOTE | 2019-09-05 14:36 | NUR ---
pt rests in bed and c/o feeling short of breath. sat is 88-89 o2 placed at 2l per nc. bp checked and is lower than normal for pt. pt repositioned and is alert and orientated but feels sleepy.dr. epstein notified per you call .
[2019-09-05 17:38] VITALS: BP 132/70
--- NOTE | 2019-09-05 18:30 | NUR ---
PT CONTINUES TO HAVE COUGH AND IS SOB,O2 IS AT 2L PER NC WITH SAT 94.LUNGS SOUND DIMINISHED. PT DOES FEEL ANXIOUS AND REQUESTS MEDICATION.PT ALERT AND ABLE TO VOICE NEEDS.PT HAS VOIDED WELL AND DID TRY TO HAVE A BM THIS EVENING. PAULA LORENZO HERE NOW TO SEE PT.
[2019-09-05 20:09] VITALS: BP 142/74
[2019-09-05 23:48] VITALS: BP 131/70
[2019-09-06 04:13] LABS: HEMOGLOBIN 11.9 gm/dL (14.0-18.0); MCH 29.9 pg (26.0-34.0); MCV 85.6 fL (80.0-100.0); MPV 7.6 fl. (7.2-11.1); NUCLEATED RBCS 0 /100WBC; PLATELET COUNT* 250 thou/uL (150-400); RBC 3.97 mil/uL (4.50-6.00); RDW-CV 14.3 % (10.5-14.5); WBC 8.1 thou/uL (4.0-11.0)
[2019-09-06 04:18] LABS: CALCIUM 8.5 mg/dL (8.5-10.1); CREATININE 2.3 mg/dL (0.6-1.3); POTASSIUM 4.9 mmol/L (3.5-5.1)
--- NOTE | 2019-09-06 05:15 | NUR ---
ASSUMED CARES AT 1920. ALERT AND ORIENTED. SLURRED SPEECH. O2 2L NC. DOES HAVE COUGH. STILL C/O SOA, ANXIOUS, RESTLESS. TACHYPNEA. SAYS THAT CAN'T SEEM TO STOP "PANTING". DISCUSSED WITH GROUP WORKER. EKG COMPLETED AND NO ACUTE CHANGES. AT 0100, INFORMED DR CROCKETT OF SYMPTOMS. PT USED URINAL BUT ALSO HAD SOME URINARY AND STOOL INCONTINENCE. PT SLEPT LITTLE DESPITE ATIVAN AND AMBIEN GIVEN. CALL LIGHT IN REACH AND BED ALARM ON.
[2019-09-06 06:04] VITALS: BP 152/82
[2019-09-06 06:26] LABS: ABSOLUTE EOSINOPHILS 0.1 thou/uL (0.0-0.7); ABSOLUTE LYMPHOCYTES 0.5 thou/uL (0.8-5.3); ABSOLUTE MONOCYTES 0.3 thou/uL (0.0-1.2); ABSOLUTE NEUTROPHILS 7.2 thou/uL (1.6-8.1); PLATELET ESTIMATE ADEQUATE
[2019-09-06 08:15] VITALS: BP 144/55
--- NOTE | 2019-09-06 09:24 | NUR ---
PT IS SOB WITH O2 SAT 93. PT ALERT AND ORIENTATED . MILD WHEEZES HEARD. CALL TO . PT DRINKING LESS AND OUTPUT LESS. PT HAS BEEN INC OF BOWEL THIS AM. PT WAS ABLE TO FEED SELF PART OF BREAKFAST AFTER CARTONS OPENED.PT TURNED AND REPOSITIONED.
--- NOTE | 2019-09-06 10:28 | EKG ---
[place] [address] ELECTROCARDIOGRAM REPORT Name: SANDY DOUGHERTY III Room: [address] ADM IN M.R.#: [id number] Admission: 08/28/19 Attend Phys: Wisam Barrera MD Discharge: Date of : 57 Report #: [id number] THIS REPORT FOR: //name// [facility] Test Date: 2019-09-06 Test Time: 00:17:13 Pat Name: SANDY DOUGHERTY Department: Room: [address] Gender: M Cantilever Crane Operator: HEIDI : 1955 Requested By: Lizandro Goldstein Order Number: [id number] Reading MD: Liam Torrez Measurements Intervals [place] Rate: 78 P: 69 UT: 188 QRS: -40 QRSD: 107 T: 79 QT: 405 QTc: 462 Interpretive Statements Sinus rhythm Incomplete RBBB and LAFB septal infarct, age indeterminate Compared to ECG 08/26/2019 15:54:52 Incomplete right bundle-branch block now present Myocardial infarct finding now present Electronically Signed On 09-06-2019 10:27:59 SOFTWARE ENGINEER KERNEL by Liam Torrez [email or web address] <ELECTRONICALLY SIGNED> By: Liam Torrez MD, FAC 09/06/19 1027 0017 0017 Liam Torrez MD, [facility] /EPI
--- NOTE | 2019-09-06 11:10 | NUR ---
HAS BEEN HERE AND ORDERS WRITTEN. PT HAS HAD CT OF CHEST AND IS NOW IN CT FOR CT OF HEAD. NEUROLOGY HERE TO SEE PT AND HAS SPOKEN TO . PT TO TRANSFERR TO ACUTE TELE UNIT,WALL MAN NOTIFIED AND WILL CALL WITH ROOM. PT REMAINS ON O2 AT 2L PER NC AND IS SLEEPY BUT AROUSES EASILY.
--- NOTE | 2019-09-06 13:09 | NUR ---
PT TRANSFERRED TO TELE 233 WITH REPORT GIVEN TO BRANDON.PT REMAINS SLEEPY BUT ALERT TO EVENTS.SON [facility]IGHT HAS BEEN CALLED WITH MESSAGE LEFT.
[2019-09-06 13:16] LABS: BE -6.9 mmol/L (-2 to +3); pH 7.376 (7.340-7.450)
[2019-09-06 13:18] LABS: PO2 59.5 mmHg (75.0-100.0)
--- NOTE | 2019-09-06 14:39 | EKG ---
[place] [address] ELECTROCARDIOGRAM REPORT Name: SANDY DOUGHERTY III Room: [address] DIS IN M.R.#: [id number] Admission: 08/28/19 Attend Phys: Wisam Barrera MD Discharge: 09/06/19 Date of : 57 Report #: [id number] THIS REPORT FOR: //name// [facility] Test Date: 2019-09-06 Test Time: 13:11:09 Pat Name: SANDY DOUGHERTY Department: Room: [address] Gender: M Dermatology Nurse Practitioner: : [id number] Requested By: Osito Carlson Order Number: [id number] MD: Liam Torrez Measurements Intervals [place] Rate: 79 P: 71 MS: 190 QRS: -50 QRSD: 102 T: 80 QT: 379 QTc: 435 Interpretive Statements Sinus rhythm LAD, consider left anterior fascicular block Minimal ST elevation consistent with early repolarization Compared to ECG 09/06/2019 00:17:13 Incomplete right bundle-branch block no longer present Myocardial infarct finding no longer present Electronically Signed On 09-06-2019 14:38:37 WIRE MACHINE OPERATOR by Liam Torrez [email or web address] <ELECTRONICALLY SIGNED> By: Liam Torrez MD, [facility] 09/06/19 1438 1311 1311 Liam Torrez MD, [facility] /EPI
== END 2019-09-06 13:13 | disposition short-term general hospital (02) | DRG 56 ==
LOC: M.REH 15:39
PROVIDERS: Family Medicine; Psychiatry & Neurology Neurology; ADMIT Physical Medicine & Rehabilitation
DX: I69.351 Hemiplegia and hemiparesis following cerebral infarction affecting right dominant side (principal); I63.9 Cerebral infarction, unspecified; N17.9 Acute kidney failure, unspecified; E11.51 Type 2 diabetes mellitus with diabetic peripheral angiopathy without gangrene; N18.3 Chronic kidney disease, stage 3 (moderate); I12.9 Hypertensive chronic kidney disease with stage 1 through stage 4 chronic kidney disease, or unspecified chronic kidney disease; E11.22 Type 2 diabetes mellitus with diabetic chronic kidney disease; R47.81 Slurred speech; I25.10 Atherosclerotic heart disease of native coronary artery without angina pectoris; Z60.2 Problems related to living alone; F12.90 Cannabis use, unspecified, uncomplicated; E78.5 Hyperlipidemia, unspecified; F17.210 Nicotine dependence, cigarettes, uncomplicated; F31.9 Bipolar disorder, unspecified; F41.9 Anxiety disorder, unspecified; R82.71 Bacteriuria; Z95.5 Presence of coronary angioplasty implant and graft; Z89.512 Acquired absence of left leg below knee; Z98.84 Bariatric surgery status; Z71.6 Tobacco abuse counseling; Z91.14 Patient's other noncompliance with medication regimen; Z82.49 Family history of ischemic heart disease and other diseases of the circulatory system

== ENCOUNTER 2019-09-06 13:30 | Inpatient (IN) | payer MEDICARE ==
[~2019-09-06] VITALS: Ht 182.9 cm; Wt 90.3 kg
[2019-09-06 13:10] VITALS: BP 130/69
[2019-09-06 16:00] VITALS: BP 124/56
[2019-09-06 18:07] LABS: ABSOLUTE BASOPHILS 0.1 thou/uL (0.0-0.2); ABSOLUTE LYMPHOCYTES 0.3 thou/uL (0.8-5.3); ABSOLUTE MONOCYTES 0.6 thou/uL (0.0-1.2); ABSOLUTE NEUTROPHILS 5.7 thou/uL (1.6-8.1); BASOPHILS 0.9 %; EOSINOPHILS 0.5 %; HEMATOCRIT 29.6 % (42.0-52.0); HEMOGLOBIN 10.6 gm/dL (14.0-18.0); LYMPHOCYTES 4.2 %; MCH 30.5 pg (26.0-34.0); MCHC 35.9 g/dL (28.0-37.0); MCV 84.9 fL (80.0-100.0); MONOCYTES 9.5 %; MPV 7.8 fl. (7.2-11.1); NUCLEATED RBCS 0 /100WBC; PLATELET COUNT* 235 thou/uL (150-400); POLYS 84.9 %; RBC 3.48 mil/uL (4.50-6.00); RDW-CV 14.4 % (10.5-14.5); WBC 6.7 thou/uL (4.0-11.0)
[2019-09-06 18:11] LABS: ALBUMIN 2.2 g/dL (3.4-5.0); CALCIUM 8.2 mg/dL (8.5-10.1); CREATININE 2.4 mg/dL (0.6-1.3); POTASSIUM 4.7 mmol/L (3.5-5.1); TOTAL BILIRUBIN 0.5 mg/dL (<0.1-1.0); TOTAL PROTEIN 5.7 g/dL (6.4-8.2)
[2019-09-06 20:02] VITALS: BP 127/64
[2019-09-06 21:55] LABS: BE -5.1 mmol/L (-2 to +3); PCO2 33.6 mmHg (35.0-45.0); PO2 92.6 mmHg (75.0-100.0); pH 7.377 (7.340-7.450)
[2019-09-07] VITALS: BP 131/71
[2019-09-07 04:00] VITALS: BP 127/72
[2019-09-07 08:00] VITALS: BP 154/79
[2019-09-07 12:04] LABS: URINE BILIRUBIN NEGATIVE (Negative); URINE BLOOD TRACE (Negative); URINE CLARITY CLEAR; URINE COLOR YELLOW; URINE GLUCOSE-RANDOM 1+ (Negative); URINE KETONES NEGATIVE (Negative); URINE LEUKOCYTES NEGATIVE (Negative); URINE NITRITE NEGATIVE (Negative); URINE PROTEIN 2+ (Negative); URINE SPECIFIC GRAVITY 1.025 (1.005-1.030); URINE UROBILINOGEN 0.2 E.U./dl (0.2-1.0)
[2019-09-07 12:10] LABS: SQUAMOUS 0-3 Few /LPF (0-3)
[2019-09-07 12:11] VITALS: BP 130/61
[2019-09-07 12:11] LABS: CALCIUM OXALATE 0-3 Few /LPF (None Seen); FINE GRANULAR CASTS 0-3 Few /LPF (None Seen); MUCUS 0-3 Light strn/LPF (None Seen); URINE RBC 0-2 Rare /HPF (0-2); URINE WBC 0-5 Rare /HPF (0-5)
[2019-09-07 17:09] VITALS: BP 122/68
[2019-09-07 20:20] VITALS: BP 146/72
[2019-09-08 00:12] VITALS: BP 164/84
[2019-09-08 04:32] VITALS: BP 143/85
[2019-09-08 06:13] LABS: HEMATOCRIT 27.8 % (42.0-52.0); HEMOGLOBIN 9.9 gm/dL (14.0-18.0); MCH 29.6 pg (26.0-34.0); MCHC 35.5 g/dL (28.0-37.0); MCV 83.5 fL (80.0-100.0); MPV 7.4 fl. (7.2-11.1); RBC 3.32 mil/uL (4.50-6.00); RDW-CV 13.9 % (10.5-14.5); WBC 5.6 thou/uL (4.0-11.0)
[2019-09-08 06:22] LABS: ALBUMIN 2.1 g/dL (3.4-5.0); CALCIUM 8.1 mg/dL (8.5-10.1); CREATININE 2.5 mg/dL (0.6-1.3); MAGNESIUM 1.9 mg/dL (1.8-2.4); PHOSPHORUS* 4.2 mg/dL (2.5-4.9); POTASSIUM 3.7 mmol/L (3.5-5.1)
[2019-09-08 08:00] VITALS: BP 196/91
[2019-09-08 12:29] VITALS: BP 144/70
[2019-09-08 16:32] VITALS: BP 139/75
[2019-09-08 22:25] VITALS: BP 154/74
[2019-09-09] VITALS: BP 152/78
[2019-09-09 04:00] VITALS: BP 122/63
[2019-09-09 08:00] VITALS: BP 176/96
[2019-09-09 12:00] VITALS: BP 142/77
[2019-09-09 16:00] VITALS: BP 163/85
[2019-09-09 20:00] VITALS: BP 150/83
[2019-09-10] VITALS: BP 145/75
[2019-09-10 04:00] VITALS: BP 178/74
[2019-09-10 08:00] VITALS: BP 192/72
[2019-09-10 12:28] VITALS: BP 167/84
[2019-09-10 16:47] VITALS: BP 157/84
== END 2019-09-10 20:00 | DRG 64 ==
LOC: M.2W 13:30
PROVIDERS: Family Medicine; ADMIT Internal Medicine
DX: I63.29 Cerebral infarction due to unspecified occlusion or stenosis of other precerebral arteries (principal); J15.6 Pneumonia due to other Gram-negative bacteria; G93.41 Metabolic encephalopathy; J69.0 Pneumonitis due to inhalation of food and vomit; J96.01 Acute respiratory failure with hypoxia; E87.2 Acidosis; J44.0 Chronic obstructive pulmonary disease with (acute) lower respiratory infection; G81.91 Hemiplegia, unspecified affecting right dominant side; F17.210 Nicotine dependence, cigarettes, uncomplicated; I25.10 Atherosclerotic heart disease of native coronary artery without angina pectoris; F31.9 Bipolar disorder, unspecified; E78.5 Hyperlipidemia, unspecified; N18.3 Chronic kidney disease, stage 3 (moderate); E11.22 Type 2 diabetes mellitus with diabetic chronic kidney disease; I12.9 Hypertensive chronic kidney disease with stage 1 through stage 4 chronic kidney disease, or unspecified chronic kidney disease; G47.00 Insomnia, unspecified; E11.51 Type 2 diabetes mellitus with diabetic peripheral angiopathy without gangrene; F12.90 Cannabis use, unspecified, uncomplicated; F41.9 Anxiety disorder, unspecified; Z66 Do not resuscitate; Z60.2 Problems related to living alone; Z95.5 Presence of coronary angioplasty implant and graft; Z79.899 Other long term (current) drug therapy; Z79.4 Long term (current) use of insulin; Z79.82 Long term (current) use of aspirin; Z82.49 Family history of ischemic heart disease and other diseases of the circulatory system; Z98.84 Bariatric surgery status; Z79.01 Long term (current) use of anticoagulants; Z89.512 Acquired absence of left leg below knee

== ENCOUNTER 2019-09-10 16:33 | Inpatient (IN) | payer MEDICARE ==
[~2019-09-10] VITALS: Ht 182.9 cm; Wt 84.4 kg
[2019-09-10 20:10] VITALS: BP 175/85
--- NOTE | 2019-09-11 05:46 | NUR ---
PT ARRIVED ONTO UNIT VIA BED FROM TELE AT 2005. ALERT AND ORIENTED. CVA WITH RIGHT SIDE WEAKNESS. OLD LEFT BKA. SLIGHT SLURRING OF SPEECH AT TIMES BUT MUCH IMPROVED. O2 2L NC. TOOK PILLS WHOLE IN APPLESAUCE. TYLENOL GIVEN FOR LEG/HIP/BACK PAIN. HOLTER MONITOR TO LEFT CHEST. USES URINAL AND NURSING EMPTIES. HAD TURKEY SANDWICH FOR HS SNACK. DURING ADMISSION SCREENING PT DID ANSWER THAT HE HAD HX OF SUICIDAL THOUGHTS ALTHOUGH PT STATES THAT HE WOULD NOT ACT ON THEM. THIS HAS BEEN ADRESSSED RECENTLY AND HE HAS HAD TELE PSYCH EVAL X 2 AND STARTED ON ABILIFY. THIS WAS DISCUSSED WITH REAR ADMIRAL. PT WAS ABLE TO SLEEP FOR FEW HOURS AND WAS PLEASED ABOUT THAT. PT WILL TURN ON TO SIDE WHEN AGREEABLE BUT HE IS ABLE TO SHIFT AND TURN ONTO RIGHT SIDE HIMSELF WELL. CALL LIGHT IN REACH AND BED ALARM ON.
[2019-09-11 06:38] LABS: HEMATOCRIT 33.8 % (42.0-52.0); HEMOGLOBIN 11.8 gm/dL (14.0-18.0); MCH 29.7 pg (26.0-34.0); MCHC 34.8 g/dL (28.0-37.0); MCV 85.3 fL (80.0-100.0); MPV 7.1 fl. (7.2-11.1); RBC 3.96 mil/uL (4.50-6.00); RDW-CV 13.9 % (10.5-14.5); WBC 6.6 thou/uL (4.0-11.0)
[2019-09-11 06:49] LABS: CALCIUM 8.6 mg/dL (8.5-10.1); CREATININE 2.3 mg/dL (0.6-1.3); POTASSIUM 3.7 mmol/L (3.5-5.1)
[2019-09-11 07:56] VITALS: BP 122/83
--- NOTE | 2019-09-11 09:55 | NUR ---
Nutrition: Pt admitted to rehab with Lt CVA. H/o DM, Rt BKA, bariatric surgery. Labs: BG 131, alb 2.1, prealb 22.1, BUN 30, cr 2.3. CHO controlled diet. Wt: 199#. RX: insulin, statin, carvedilol. Per intake records, eating 50-100% of meals/snacks. Will follow po intake, wt, labs weekly. Low risk. GOALS: tight BG control.
--- NOTE | 2019-09-11 16:06 | NUR ---
SW and Dr Barrera met with pt to review team conference summary and for reassessment. Plan for pt to remain on rehab unit at least another week with team to reassess pt length of stay during team conference on Monday. Pt known from previous stay on inpt rehab, dc to acute and then dc back to inpt rehab. Pt lives alone prior to CVA. Pt has son and a sister who are supportive. Pt sister had been looking for some type of one level apt or senior housing and now is also considering looking at LTC facilities. SW called pt sister with no answer. SW called pt son who did not answer, SW left detailed message and requested call back with any questions or concerns. SW to continue to follow to assist with safe dc planning.
--- NOTE | 2019-09-11 18:00 | NUR ---
ALERT AND ORIENTED X4. UP WITH 2 ASSIST, GAIT BELT, AND SLIDE BOARD OR STONE LIFT. HAS RIGHT SIDED WEAKNESS. RIGHT HAND CARPET RENOVATOR WEAK. ABLE TO MOVE RIGHT LEG SOME. RECEIVING THERAPIES. C/O RIGHT ELBOW PAIN AND NEW PAIN MEDICATION GIVEN WITH SOME RELIEF. PATIENT UPSET THIS EVENING SAYING HE HAS NO WHERE TO GO. NOTIFIED PATIENT WE WOULD BE ABLE TO FIND HIM A PLACE TO GO. STATED HE WANTED TO HURT HIMSELF BUT SAID HE WOULD NOT DO IT. SAID HE WANT TO CALL HIS SON LATER BUT NOT NOW. CONTINUES ON IV ANTIBIODICS. CALL LIGHT WITHIN REACH. BED ALARM AND CHAIR ALARM USED.
--- NOTE | 2019-09-11 19:28 | NUR ---
AT SUPPERTIME PATIENT STATED TO EMPLOYEE BENEFITS DIRECTOR SHE NEED TO TAKE HIS TABLE KNIFE AWAY BECAUSE HE WANTED TO HURT HIMSELF. WHEN I WENT TO ROOM AND ASKED IF HE WOULD ACTUALLY HURT HIMSELF HE SAID NO. DID GO AHEAD AND REMOVE TABLE KNIFE AND FORK FROM TRAY AT PATIENT REQUEST. WILL PASS ON AND CONTINUE TO MONITOR.
[2019-09-11 20:00] VITALS: BP 182/81
[2019-09-11 22:15] VITALS: BP 131/55
[2019-09-12 03:51] LABS: HEMATOCRIT 30.9 % (42.0-52.0); HEMOGLOBIN 10.7 gm/dL (14.0-18.0); MCH 29.8 pg (26.0-34.0); MCHC 34.8 g/dL (28.0-37.0); MCV 85.5 fL (80.0-100.0); MPV 6.9 fl. (7.2-11.1); RBC 3.61 mil/uL (4.50-6.00); RDW-CV 14.2 % (10.5-14.5); WBC 7.9 thou/uL (4.0-11.0)
[2019-09-12 04:04] LABS: CREATININE 2.5 mg/dL (0.6-1.3); POTASSIUM 3.5 mmol/L (3.5-5.1)
--- NOTE | 2019-09-12 05:37 | NUR ---
ASSUMED CARES AT 1920. ALERT AND ORIENTED. O2 2L NC. TAKES PILLS WHOLE IN APPLESAUCE. DENIED ANY NEED FOR PAIN MEDS. SALINE LOCK TO LEFT ARM X 2. AMBIEN GIVEN PER PT REQUEST. PT ABLE TO SLEEP SOME. SANDWICH EATEN FOR SNACK. CALL LIGHT IN REACH AND BED ALARM ON.
[2019-09-12 07:49] VITALS: BP 163/98
--- NOTE | 2019-09-12 16:36 | NUR ---
ASSUMMED CARE OF PT AT 0730, PT ALERT AND ORIENTED, TRANSFERS WITH MOD ASSIST AND GB STAND PIVOT WITH PROSTHETIC LEG, HAD LUNCH IN DININGROOM, TEARFUL X 1 THIS SHIFT, NO VERBALIZATION OF SUICIAL THOUGHTS, NO SOA, PT MAINTAINS O2 SATS OF 94% ON 2 L, PT COMPLAINS OF PAIN IN BACK, RIGHT ARM, MEDICATED PER ORDER, NO BM THIS SHIFT, PT GIVEN BOWEL MEDS ORDERED, SUPP GIVEN X 1 WITH NO STOOL, WILL GIVE PRUNE JUICE AND MOM, SALINE LOCK PATENT LEFT HAND, LEFT FOREARM SALINE LOCK REMOVED, PARTICIPATED IN ALL THERAPIES, HOURLY ROUNDING COMPLETED, ASSESSMENT COMPLETE, WILL CONTINUE TO MONITOR.
[2019-09-12 20:05] VITALS: BP 174/85
--- NOTE | 2019-09-13 05:11 | NUR ---
ASSUMED PT CARE AT 1930. PT ALERT AND ORIENTED X4, COOPERATIVE WITH CARES. PT ON 2L 02 PER AL. TAKES PILLS WHOLE IN APPLESAUCE. DENIES NEED FOR PAIN MEDS. INCONTINENT OF STOOL X4 AND INCONTINENT OF URINE X1. PT USES URINAL, STAFF EMPTIES. SALINE LOCK TO LEFT HAND. CHANDA AT HS PER PT REQUEST. INC FOR SNACK. PT SLEPT OFF AND ON. USES CALL LIGHT APPROPRIATELY. FREQUENTLY USED ITEMS IN REACH. HOURLY ROUNDING IN PROGRESS, WILL CONTINUE TO MONITOR.
[2019-09-13 08:22] VITALS: BP 167/92
--- NOTE | 2019-09-13 18:22 | NUR ---
ASSUMMED CARE OF PT AT 0730, PT ALERT AND ORIENTED, TRANSFERS WITH MOD ASSIST OF 2, GB WITH PROSTHESIS A STAND PIVOT, PT VOIDS PER URINAL, PT COMPLAINS OF GENERALIZED PAIN THIS AM, MEDICATED PER ORDER, NO STOOL THIS SHIFT, PT C/O BEING TIRED THIS SHIFT HE DID NOT SLEEP WELL LAST NIGHT, PT UP IN CHAIR MOST OF SHIFT, REPOSTIONED EVERY 2 HOURS, WAFFLE CUSHION IN CHAIR, APETITE DIMINISHED, PT NEEDS ENCOURAGEMENT TO EAT, TAKING FLUIDS WELL, LUNGS COARSE AT TIMES, NEED ENCOURAGEMENT TO DEEP BREATHE, PARTICIPATED IN ALL THERAPIES, HOURLY ROUNDING COMPLETED, ASSESSMENT COMPLETE, WILL CONTINUE TO MONITOR.
[2019-09-13 20:05] VITALS: BP 167/82
--- NOTE | 2019-09-14 05:10 | NUR ---
ASSUMED PATIENT CARE AT 1930. PT ALERT AND ORIENTED X4, POLITE AND COOPERATIVE WITH CARES. PT HAS A VERY FLAT AFFECT. ON 2L 02 PER NC. TAKES PILLS WHOLE IN APPLESAUCE. DENIES NEED FOR PAIN MEDS. INCONTINENT OF STOOL ONCE THIS SHIFT. NO STOOL THIS SHIFT. PT USES URINAL, STAFF EMPTIES. SALINE LOCK TO LEFT HAND. AMBIEN AT HS. BRITTNEY CRACKERS AND PEANUT BUTTER FOR HS SNACK. PT SLEPT OFF AND ON. USES CALL LIGHT APPROPRIATELY, FREQUENTLY USED ITEMS IN REACH. HOURLY ROUNDING IN PROGRESS, WILL CONTINUE TO MONITOR.
[2019-09-14 08:00] VITALS: BP 188/89
--- NOTE | 2019-09-14 16:54 | NUR ---
ALERT AND ORIENTED X4. UP WITH 2 ASSIST AND GAIT BELT FOR PIVOT TRANSFERS TO CHAIR. CONTINUES TO HAVE RIGHT SIDED WEAKNESS. HAS OLD LEFT BKA WITH PROSTHESIS. PAIN MEDICATION GIVEN AND HELPFUL FOR BACK PAIN. PLEASANT AND JOKING WITH STAFF TODAY. O2 SATS IN 90'S ON ROOM AIR. CONTINUES TO HAVE WORKING PRECISION LENS POLISHER IN PLACE. USES CALL LIGHT WITHIN REACH. BED ALARM AND CHAIR ALARM USED.
[2019-09-14 19:30] VITALS: BP 177/81
--- NOTE | 2019-09-15 05:55 | NUR ---
ASSUMED PATIENT CARE AT 1930. PT ALERT AND ORIENTED X4, POLITE AND COOPERATIVE WITH CARES. PT VOIDS PER URINAL AT NIGHT. NO STOOL THIS SHIFT. PT HAS RIGHT SIDE WEAKNESS. OLD LEFT BKA. TYLENOL AT HS FOR BACK PAIN. PIPELINE TECHNICIAN IN PLACE. USES CALL LIGHT APPROPRIATELY. BED ALARM ON FOR SAFETY. HOURLY ROUNDING IN PROGRESS, WILL CONTINUE TO MONITOR.
[2019-09-15 07:58] VITALS: BP 179/85
--- NOTE | 2019-09-15 15:26 | NUR ---
PATIENT UNABLE TO VOID IN URINAL OR BEDSIDE COMMODE. BLADDER SCAN SHOWED GREATER THAN 600ML. NEW ORDER TO STRAIGHT CATH IF GREATER THAN 250ML. STRAIGHT CATH WITHOUT DIFFICULTY WITH RETURN OF 750ML CLEAR YELLOW URINE.
--- NOTE | 2019-09-15 17:12 | NUR ---
ALERT AND ORIENTED X4. PATIENT SAD TODAY ABOUT HOME AND CAR. DR NOTIFIED. UP WITH 2 ASSIST, PROSTHESIS, GAIT BELT FOR PIVOT TRANSFER. UNABLE TO VOID TODAY AND WAS STRAIGHT CATH WITHOUT DIFFICULTY WITH RETURN OF 750ML OF CLEAR YELLOW URINE. USING PAIN MEDICATION FOR PAIN WITH SOME RELIEF. HAS RIGHT SIDED WEAKNESS. HAS PROSTHESIS FOR BKA ON LEFT. USES CALL LIGHT WITHIN REACH. FALL PRECAUTIONS IN PLACE.
[2019-09-15 19:30] VITALS: BP 157/80
--- NOTE | 2019-09-16 05:20 | NUR ---
ASSUMED CARE AT 1920. ALERT AND ORIENTED. CVA WITH RIGHT SIDE WEAKNESS. PILLS WITH APPLESAUCE. PT UNABLE TO VOID. AT 2300 PT STRAIGHT CATHED WITH 500 CC URINE OUTPUT. PT ALSO REQUESTED SUPPOSITORY AND SO THIS WAS GIVEN. DID HAVE MODERATE STOOL INCONTINENCE. NURSING DID ALL CARES. AT 0500, PT BLADDER SCAN SHOWED 243 CC. PT WAS NOT STRAIGHT CATHED AT THIS TIME. SLEPT VERY LITTLE DESPITE GIVEN SLEEP AIDS. CALL LIGHT IN REACH AND BED ALARM ON.
[2019-09-16 07:57] VITALS: BP 130/91
[2019-09-16 17:51] LABS: URINE BILIRUBIN NEGATIVE (Negative); URINE BLOOD 2+ (Negative); URINE CLARITY CLEAR; URINE COLOR YELLOW; URINE GLUCOSE-RANDOM TRACE (Negative); URINE KETONES TRACE (Negative); URINE LEUKOCYTES-REFLEX TRACE (Negative); URINE NITRITE-REFLEX NEGATIVE (Negative); URINE PROTEIN 3+ (Negative); URINE SPECIFIC GRAVITY 1.025 (1.005-1.030); URINE UROBILINOGEN 0.2 E.U./dl (0.2-1.0)
--- NOTE | 2019-09-16 17:52 | NUR ---
SW spoke with pt sister who is concerned with finding dc placement and trying to apply for Medicaid for pt. SW provided resources and discussed SNF through Medicare initially if needed from inpt rehab. SW to continue to follow.
--- NOTE | 2019-09-16 17:56 | NUR ---
ALERT AND ORIENTED X4. UP WITH 2 ASSIST,GAIT BELT FOR PIVOT TRANSFERS TO AND FROM CHAIR. UNABLE TO VOID THIS AM BLADDER SCAN SHOWED 377ML. TURNER CATHETER INSERTED WITHOUT DIFFICULTY WITH CLEAR YELLOW URINE RETURN. AT 1220 PATIENT C/O HAVING NUMBNESS ON RIGHT SIDE OF FACE, C/O INCREASE DROOLING, C/O INCREASE DIFFICULTY WITH SPEECH AND C/O FEELING OF HEART POUNDING IN CHEST. NO CHANGE IN SPEECH NOTED TO ME FROM EARLIER IN SHIFT. V/S PULSE 70 B/P 155/76. [address] ORDERED. 1310 PATIENT STARTED C/O LEFT SIDE OF FACE HAVING NUMBNESS. 1350 DR ON 3W AND NOTIFIED OF PATIENT'S SYMPTOMS. DR DID COME AND SEE PATIENT. CT AND EKG DONE. 1800 PATIENT STATED FEELING BETTER AFTER GETTING A NAP. NO C/O NUMBNESS ON LEFT SIDE OF FACE AND FEELING MUCH BETTER. NUMBNESS ON RIGHT SIDE OF FACE BETTER. NO FEELING OF POUNDING IN CHEST. USES CALL LIGHT WITHIN REACH. FALL PRECAUTIONS IN PLACE, BED ALARM AND CHAIR ALARM USED.
[2019-09-16 17:57] LABS: HYALINE CASTS 4-10 Moderate /LPF (None Seen); MUCUS None Seen strn/LPF (None Seen); SQUAMOUS NONE SEEN /LPF (0-3)
[2019-09-16 17:58] LABS: URINE RBC 3-10 Few /HPF (0-2)
[2019-09-16 17:59] LABS: BACTERIA-REFLEX 1-9 Few /HPF (None Seen); CRYSTALS None Seen /LPF (None Seen); URINE WBC-REFLEX >25 Many /HPF (0-5); WBC CLUMPS Few (None Seen)
[2019-09-16 19:10] VITALS: BP 154/83
--- NOTE | 2019-09-17 04:46 | NUR ---
ASSUMED PT CARE AT 1930. PT ALERT AND ORIENTED X4, POLITE AND COOPERATIVE WITH CARES. HX CVA WITH RIGHT SIDE WEAKNESS. TAKES PILLS WHOLE IN APPLESAUCE. PT DENIES PAIN OR DISTRESS UPON INITIAL ASSESSMENT. TURNER TO DD DRAINING DARK YELLOW URINE. PT SLEPT SPORADICALLY DESPITE SCHEDULED AND PRN SLEEP MEDICATIONS. FLEXERIL X1 PER PT REQUEST. USES CALL LIGHT APPROPRIATELY. CALL LIGHT AND FREQUENTLY USED ITEMS IN REACH. HOURLY ROUNDING IN PROGRESS, WILL CONTINUE TO MONITOR.
[2019-09-17 09:11] VITALS: BP 154/70
--- NOTE | 2019-09-17 15:53 | NUR ---
pt has participated with therapies and calls for assist as needed. iniguez to dd with clear yellow urine present.urology has been here today with no new orders.pt transferrs to w/c with prostesis on and mod assist for steading of 2.pt denies pain this afternoon.pt has taken shower with ot assist and shaved self. pt did josef self on cheeks and lt ear with areas cleansed and bleeding stopped.nystantin powder to reddened groins and scrotal area.pt has not been tearfull today but is sad.
[2019-09-17 19:30] VITALS: BP 158/84
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
[2019-09-18 08:07] VITALS: BP 149/79
--- NOTE | 2019-09-18 16:38 | NUR ---
pt has worked with therapies and transferrs to w/c with prosthesis on and assist of 2 with gaitbelt. pt was given dulcolax supp with fair effect this am.prn for tone to rt. arm given this afternoon with fair effect. pt alert and orientated but can be sad. pt has not been tearfull or made any statements about wanting to harm self. pt able to feed self and cut up soft foods with lt hand and is assisted with opening cartons and bottles.iniguez to dd with clear urine present.sister has been here today assisting pt with finances.
--- NOTE | 2019-09-18 16:48 | NUR ---
Team conference held today; Dr Barrera spoke with pt and pt sister about plan to reteam. SW to continue to follow to assist with possibility of home vs SNF or LTC placement at [place].
[2019-09-18 19:50] VITALS: BP 153/79
--- NOTE | 2019-09-19 04:07 | NUR ---
ASSUMED CARE @ 1916-09/18-MON.AWAKE IN BED W/ HOB UP.RUE UP ON A PILLOW.BED ALARM PUT ON @ 1916.HS MEDS GIVEN @ 2049 W/ APPLE SAUCE.AWAKE @ 229.ACCUCHECK-93.TOOK ALL CRACKERS W/ PEANUT BUTTER & DIET SPRITE @ 229. BACK TO SLEEP @ 0325.ON HOURLY ROUNDS.
--- NOTE | 2019-09-19 05:41 | NUR ---
SLEPT LATE @ 0000-09/19-.CALLED FOR SLEEPING MED @ 0100.RN INFORMED PATIENT THAT HE HAS ALREADY TAKEN BOTH MELATONIN & AMBIEN @ HS-ONE HOUR APART.TOOK ALL DIET SPRITE X2,TURKEY SANDWICH,& CRACKERS W/ PEANUT BUTTER SNACKS. AWAKE MOST OF TIME DURING NIGHT.
[2019-09-19 08:00] VITALS: BP 140/74
--- NOTE | 2019-09-19 15:42 | NUR ---
ASSUMMED CARE OF PT AT 0730, PT ALERT AND ORIENTED, TRANSFERS WITH MOD ASSIST OF 2, REPOSTIONED EVERY 2 HOURS, RIGHT HAND ELEVATED ON PILLOW, SOME EDEMA IN RIGHT HAND, SCROTAL AREA PINK, NYSTATIN APPLIED, PT TAKING FOOD AND FLUIDS WELL, TURNER PATENT AND DRAINING KAAMLA URINE, TAKES PILLS WHOLE IN APPLESAUCE, MEDICATED X1 FOR STIFFNESS AND HEADACHE, PT HAD BM ON FUSING MACHINE FEEDER SO SUPPOSITORY HELD THIS AM, PARTICIPATED IN ALL THERAPIES, HOURLY ROUNDING COMPLETED, ASSESSMENT COMPLETE, WILL CONTINUE TO MONITOR.
[2019-09-19 19:20] VITALS: BP 154/72
--- NOTE | 2019-09-20 00:31 | NUR ---
ASSUMED CARE @ 1914-09/19-.AWAKE IN BED ON HIS RIGHT SIDE.HOB UP.RUE & RIGHT LE UP ON PILLOW.BED ALARM ON ALREADY @ 1914.TURNER CATHETER-PATENT.BOTH AMBIEN & MELATONIN BOTH GIVEN @ 2013.HS MEDS GIVEN WHOLE ONE @ A TIME OR 2 @ A TIME IF SMALL PILLS @ 2019 W/ APPLE SAUCE.CALLED @ 0030-FOR SNACKS.DIET SPRITE W/ ICE & ONE PACKAGE BRITTNEY CRACKERS W/ PEANUT BUTTER.ON HOURLY ROUNDS.
--- NOTE | 2019-09-20 05:50 | NUR ---
SLEEPING SINCE 2200 & SLEPT BETTER THAN MON NIGHT.TOOK ONLY 90% APPLE SAUCE W/ HS MEDS @ 2019.BUT ATE ALL BRITTNEY CRACKERS ONE PACKAGE W/ PEANUT BUTTER & 240 ML DIET SPRITE @ 0030.INC BM-LARGE @ 0140.SULY CARE GIVEN AFTER BM.
[2019-09-20 07:37] VITALS: BP 151/81
--- NOTE | 2019-09-20 16:23 | NUR ---
SW met with pt and pt sister and RN VALENCIA Phillips assisted with notarizing financial dpoa and a revised DPOA to make pt sister lead agent and pt son Masood an alternate agent at pt request and agreement. SW to continue to follow to assist with safe dc planning.
--- NOTE | 2019-09-20 18:24 | NUR ---
ALERT AND ORIENTED X4. UP WITH 2 ASSIST, GAIT BELT FOR PIVOT TRANSFERS TO AND FROM BED AND CHAIR. HAS PROSTHESIS TO LEFT LOWER LEG. C/O NAUSEA THIS AM AND GIVEN MYLANTA WHICH WAS HELPFUL. USING PO PAIN MEDICATION FOR C/O BACK PAIN. TURNER CATHETER PATENT WITH CLEAR YELLOW URINE. CALL LIGHT WITHIN REACH. FALL PRECAUTIONS IN PLACE WITH BED AND CHAIR ALARM.
[2019-09-20 20:14] VITALS: BP 158/83
--- NOTE | 2019-09-21 05:02 | NUR ---
ASSUMED CARES AT 1920. ALERT AND ORIENTED. C/O BACK AND LEG PAIN. TYLENOL AND FLEXERIL GIVEN. TOOK PILLS WHOLE IN APPLESAUCE. TURNER CATHETER DD YELLOW URINE. AT 0, PT WAS DIAPHORETIC. ACCUCHECK WAS 42. JUICE AND CRACKERS GIVEN. BLOOD SUGAR RECHECK WAS 150. NO FURTHER SYMPTOMS. SLEPT OFF AND ON. CALL LIGHT IN REACH AND BED ALARM ON.
[2019-09-21 08:00] VITALS: BP 185/95
--- NOTE | 2019-09-21 17:17 | NUR ---
AM ASSESSMENT AND VITAL SIGNS COMPLETED DOCUMENTED. PT IS AN ASSIST OF TWO WITH TRANSFERS, HE IS INCONSISTENT IN HIS ABILITY TO PARTICIPATE IN THE TRANSFER. FC TO DD DUE TO URINARY RETENTION AND HE WAS INCONTINENT OF A LARGE BM. PRN TYLENOL GIVEN X 1 FOR C/O BACK PAIN. FALL PRECAUTIONS AND HOURLY ROUNDING CONTINUE.
[2019-09-21 20:00] VITALS: BP 145/82
--- NOTE | 2019-09-22 05:24 | NUR ---
ASSUMED PT CARE AT 1930. PT ALERT AND ORIENTED X4, POLITE AND COOPERATIVE WITH CARES. PT TAKES PILLS WHOLE IN APPLESAUCE. PT COMPLAINING HE WAS UNABLE TO SLEEP DESPITE HAVING TAKEN MELATONIN, ZOLPIDEM AND FLEXERIL. DENIED NEED FOR PAIN MEDICATION. TURNER TO DD DRAINING YELLOW URINE. USES CALL LIGHT APPROPRIATELY. HOURLY ROUNDING IN PROGRESS, WILL CONTINUE TO MONITOR.
[2019-09-22 08:00] VITALS: BP 157/91
[2019-09-22 19:30] VITALS: BP 133/71
--- NOTE | 2019-09-23 05:34 | NUR ---
ASSUMED PT CARE AT 1930. PT ALERT AND ORIENTED X4. DENIED PAIN. PT TAKES PILLS IN APPLESAUCE, LARGER PILLS CUT IN HALF. TURNER CATHETER TO DD, DRAINING YELLOW URINE. PT DIAPHORETIC AT 0300, ACCUCHECK 82. PEANUT BUTTER AND CRACKERS GIVEN. BLOOD SUGAR RECHECK WAS 121. NO FURTHER SYMPTOMS. PT SLEPT MORE THAN PREVIOUS NIGHT. PRN TENAZAPAM GIVEN AT HS. USES CALL LIGHT APPROPRIATELY, BED ALARM ON FOR SAFETY. HOURLY ROUNDING IN PROGRESS, WILL CONTINUE TO MONITOR.
[2019-09-23 07:52] VITALS: BP 149/98
[2019-09-23 12:06] LABS: ABSOLUTE BASOPHILS 0.1 thou/uL (0.0-0.2); ABSOLUTE EOSINOPHILS 0.2 thou/uL (0.0-0.7); ABSOLUTE LYMPHOCYTES 1.1 thou/uL (0.8-5.3); ABSOLUTE MONOCYTES 0.5 thou/uL (0.0-1.2); ABSOLUTE NEUTROPHILS 6.4 thou/uL (1.6-8.1); BASOPHILS 1.5 %; EOSINOPHILS 2.3 %; HEMATOCRIT 34.4 % (42.0-52.0); HEMOGLOBIN 12.1 gm/dL (14.0-18.0); LYMPHOCYTES 13.6 %; MCHC 35.3 g/dL (28.0-37.0); MONOCYTES 5.5 %; MPV 7.3 fl. (7.2-11.1); NUCLEATED RBCS 0 /100WBC; PLATELET COUNT* 359 thou/uL (150-400); POLYS 77.1 %; RBC 4.05 mil/uL (4.50-6.00); RDW-CV 14.3 % (10.5-14.5); WBC 8.3 thou/uL (4.0-11.0)
[2019-09-23 12:42] LABS: ALBUMIN 2.6 g/dL (3.4-5.0); CALCIUM 8.8 mg/dL (8.5-10.1); POTASSIUM 4.3 mmol/L (3.5-5.1); TOTAL BILIRUBIN 0.3 mg/dL (<0.1-1.0); TOTAL PROTEIN 6.8 g/dL (6.4-8.2)
[2019-09-23 13:23] LABS: ESR (SEDRATE) 90 mm/hr (0-20)
--- NOTE | 2019-09-23 15:42 | NUR ---
ASSUMED CARE AT 0730. ALERT ORIENTED PLEASANT COOPERATIVE. HX OF CVA RT. SIDE WEAKNESS. 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 TRANSFERS WITH 1-2 FROM W/C TO BED USING GAIT BELT. TURNER CATH PATENT WITH KAMALA URINE TO DD BAG. PT. C/O TURNER BEING UNCOMFORTABLE BALLOON DEFLATED AND REINFLATED STATED SOME RELIEF NYSTATIN POWDER APPLIED TO REDDENED GROINS. PARTICIPATING IN THERAPIES. MEDICATED WITH 1 FLEXERIL AT LUNCH TIME PER PT. REQUEST. SISTER HERE VISITING TRYING TO ASSIST PT. WITH DPOA.
[2019-09-23 19:00] VITALS: BP 152/76
--- NOTE | 2019-09-24 05:18 | NUR ---
ASSUMED CARE AT 1920. ALERT AND ORIENTED. TURNER CATHETER DD YELLOW URINE. AT 2400, PT C/O DIAPHORESIS. ACCUCHECK WAS 37 DESPITE HAVEN EATEN TURKEY SANDWICH AT BEDTIME. JUICE AND CRACKERS GIVEN. PAGED DR WEISS. ORDER TO D/C SLIDING SCALE INSULIN FOR NOW AND WILL F/U. RECHECK OF BLOOD SUGAR WAS 94. PT FEELING BETTER. CALL LIGHT IN REACH AND BED ALARM ON.
[2019-09-24 07:34] VITALS: BP 173/98
--- NOTE | 2019-09-24 14:55 | NUR ---
ASSUMED CARE AT 0730. ALERT ORIENTED PLEASANT COOPERATIVE. HX OF CVA RT. SIDE WEAKNESS. OLD BKA L WEARS PROSTHETIC. TRANSFERS WITH 2 ASSIST G BELT FROM W/C TO BED. TURNER PATENT WITH KAMALA URINE TO DD BAG. MEDICATED X 2 FOR CHRONIC BACK PAIN WITH TYLENOL AND A FLEXERIL WITH SOME RELIEF. PARTICIPATING IN THERAPIES. FEEDS SELF WITH SET UP TAKES MEDS IN APPLESAUCE WHOLE. SISTER HERE VISITING EARLY A.M.
[2019-09-24 19:35] VITALS: BP 151/81
--- NOTE | 2019-09-25 01:49 | NUR ---
ASSUMED CARE @ 1929-09/24-.AWAKE IN BED W/ HOB UP.RUE UP ON A PILLOW @ 1929.WATCHING TV.TURNER CATHETER IN PLACE & [PATENT.BED ALARM ALREADY ON @ 1929.SEE PAIN MANAGEMENT @ 2017.HS MEDS GIVEN WHOLE ONE OR 2 SMALL PILLS @ A TIME W/ APPLE SAUCE @ 2024.AT 2200-FOUND HOSP GOWN OFF.C/O BEING HOT.CALLED @ 2245 TO GET ACCUCHECK-161.NOT DIAPHORETIC.ROOM-WARM.CALLED @ 2340 FOR DIET SPRITE.CALLED @ 0140 FOR PEANUT BUTTER CRACKERS.SULY CARE GIVEN @ HS BEFORE APPLYING NYSTATIN POWDER TO PINK GROINS & POST.SCROTUM.ON HOURLY ROUNDS.
--- NOTE | 2019-09-25 05:48 | NUR ---
SLEPT LATE @ 2200 TO 0200 & 0400.AWAKE @ 0000,0300 & 0500.NOTED TURNER OUTPUT ONLY 125 ML @ 0445.IRRIGATED TURNER BUT MEETING RESISTANCE.TURNER CATHETER PULLED OUT & CLOGGED W/ DRY MORIN PARTICLES.BLADDER SCAN @ 0500-712 ML URINE. TURNER CATHETER REPLACED W/ FR #16 @ 0510 & DRAINED RIGHT AWAY 700 ML URINE. TOOK ALL APPLE SAUCE W/ HS MEDS,APPLE JUICE,BRITTNEY CRACKERS W/ PEANUT BUTTER /DIET SPRITE & PEANUT BUTTER CRACKERS HS SNACKS DURING NIGHT.
[2019-09-25 08:00] VITALS: BP 152/87
--- NOTE | 2019-09-25 13:44 | EKG ---
[place] [address] ELECTROCARDIOGRAM REPORT Name: SANDY DOUGHERTY III Room: [address] ADM IN .R.#: [id number] Admission: 09/10/19 Attend Phys: Wisam Barrera MD Discharge: Date of : 57 Date of Service: 09/16/19 1708 Report #: [id number] THIS REPORT FOR: cc: Wisam Barrera MD, Mohsen MD Blick,Liam Harris MD [facility] ~ THIS REPORT FOR: //name// [facility] Test Date: 2019-09-16 Test Time: 17:08:33 Pat Name: SANDY LADONNA Department: Room: [address] Gender: M Geosciences Faculty Member: TS : [id number] Requested By: Tommy Harrington Order Number: [id number] Reading MD: Liam Torrez Measurements Intervals Shirley Rate: 68 P: 60 TN: 174 QRS: -47 QRSD: 97 T: 57 QT: 419 QTc: 446 Interpretive Statements Sinus rhythm Left anterior fascicular block Abnormal R-wave progression, early transition Baseline wander in lead(s) V1 Compared to ECG 09/06/2019 13:11:09 Early repolarization no longer present Electronically Signed On 09-17-2019 11:27:13 PET TECHNOLOGIST by Liam Torrez [email or web address] <ELECTRONICALLY SIGNED> By: Liam Torrez MD, [facility] 09/17/19 1127 1708 1708 Liam Torrez MD, [facility] /EPI
--- NOTE | 2019-09-25 15:41 | NUR ---
BATSHEVA and Dr Barrera met with pt to review team conference summary and plan for pt to remain on rehab unit at least one more week with possible dc to SNF on 10/04. SW to continue to follow to assist with finalizing safe dc plan.
--- NOTE | 2019-09-25 16:55 | NUR ---
pt has rested in bed part of day and had some therapies in bed this afternoon. pt alert with flat affect.pt is max assist of 2 to transferr with queing. iniguez to dd with clear yellow urine present.prn for penile pain given with good effect. pt turned and repositioned q2 hour when in bed.
[2019-09-25 19:15] VITALS: BP 153/73
--- NOTE | 2019-09-26 01:39 | NUR ---
ASSUMED CARE @ 1919-09/25-MON.AWAKE IN BED W/ HOB UP & RUE UP ON A PILLOW. BED ALARM PUT ON @ 1931.TURNER CATHETER IN PLACE & PATENT.HS MEDS GIVEN WHOLE W/APPLE SAUCE.PATIENT WANTS SLEEPING MEDS-AMBIEN & MELATONIN BOTH GIVEN LATE AROUND 2199 & BOTH GIVEN @ 2202.ON HOURLY ROUNDS.HAND EDGE BANDER'S DOING ODD HOUR ROUNDS.
--- NOTE | 2019-09-26 05:09 | NUR ---
SLEPT LATE @ 2300 & SLEPT BETTER TONIGHT.TOOK ALL APPLE SAUCE,DIET SPRITE, & BRITTNEY CRACKERS W/ PEANUT BUTTER HS SNACKS.
[2019-09-26 08:00] VITALS: BP 168/90
[2019-09-26 16:11] LABS: CALCIUM 8.8 mg/dL (8.5-10.1); CREATININE 2.1 mg/dL (0.6-1.3); POTASSIUM 3.9 mmol/L (3.5-5.1)
--- NOTE | 2019-09-26 16:40 | NUR ---
PT HAS DRESSED AND PARTICIPATED WITH THERAPIES TODAY.PT REPORTS SLEEPING WELL LAST NIGHT.PRN TYLENOL GIVEN FOR GENERAL ACHES WITH GOOD EFFECT TODAY.PT WEARS PROSTHESIS TO TRANSFERR WITH THERAPY TODAY. PT DOES SHOW MORE USE OF RT. ARM. BUT DOES NEED ASSIST WITH CUTTING UP FOODS, PT FEEDS SELF. TURNER TO DD WITH CLEAR YELLOW URINE PRESENT. PT IS GIVEN DULCOLOX SUPP THIS AFTERNOON WITH NO RESULTS YET.PT IS ALERT AND ORIENTATED AND CALLS FOR ASSIST NEED. BED AND CHAIR ALARMS IN USE.
[2019-09-26 20:22] VITALS: BP 138/90
--- NOTE | 2019-09-27 05:33 | NUR ---
ASSUMED PT CARE AT 1930. PT ALERT AND ORIENTED X4, POLITE AND COOPERATIVE WITH CARES. TAKES MEDS WHOLE IN APPLESAUCE. HAD BRITTNEY CRACKERS AND PEANUT BUTTER FOR HS SNACK. TURNER TO DD DRAINING CLEAR YELLOW URINE. AMBIEN AND MELATONIN AT HS. PT SLEPT WELL OVERNIGHT. USES CALL LIGHT APPROPRIATELY. CALL LIGHT AND FREQUENTLY USED ITEMS IN REACH. BED ALARM ON FOR SAFETY. HOURLY ROUNDING IN PROGRESS, WILL CONTINUE TO MONITOR.
[2019-09-27 08:17] VITALS: BP 159/89
--- NOTE | 2019-09-27 16:57 | NUR ---
ALERT AND ORIENTED X4. UP WITH 1-2 ASSIST AND GAIT BELT FOR TRANSFERS. HAS LEFT SIDED WEAKNESS FROM CVA. HAS TURNER CATHETER PATENT WITH PINK TINGED URINE THIS AFTERNOON AFTER THERAPY. USES PO PAIN MEDICATION TO HELP WITH PAIN. FALL PRECAUTIONS IN PLACE, BED ALARM AND CHAIR ALARM USED. CALL LIGHT WITHIN REACH.
[2019-09-27 20:00] VITALS: BP 141/71
--- NOTE | 2019-09-28 01:54 | NUR ---
ASSUMED CARE @ -MONDAY.AWAKE IN BED W/ HOB UP.RUE UP ON A PILLOW @ 1929.WATCHING TV.TURNER IN PLACE & PATENT.URINE-DARK YELLOW.BED ALARM PUT ON @ 1929.PRN MYLANTA 30 ML ORAL GIVEN @ 2000 FOR C/O UPSET STOMACH.AFFORDED RELIEF.TOOK HS MEDS WHOLE W/ APPLE SAUCE.CALLED FOR SNACKS @ -SAT. TOOK ALL BRITTNEY CRACKERS W/ PEANUT BUTTER.ASSISTED W/ DENTURE CARE @ 2102. ON HOURLY ROUNDS.VIDEO PRODUCER DOING ODD HOUR ROUNDS.
--- NOTE | 2019-09-28 05:41 | NUR ---
SLEEPING SINCE 2233 & slept good all night.CALLED @ 0040.ALREADY INC LARGE BM.SULY CARE DONE.REFUSED HS SNACK BUT CALLED @ 0130 FOR ONE PACKAGE BRITTNEY CRACKERS W/ PEANUT BUTTER & ATE ALL.
[2019-09-28 08:21] VITALS: BP 138/82
--- NOTE | 2019-09-28 16:44 | NUR ---
ALERT AND ORIENTED X4. UP WITH 1-2 ASSIST AND GAIT BELT FOR PIVOT TRANSFERS. CONTINENT OF XLARGE BM ON BEDSIDE COMMODE TODAY. HAS TURNER CATHETER PATENT OF CLEAR YELLOW URINE. GIVEN PO PAIN MEDICATIONS TO HELP WITH RIGHT SIDE ARM PAIN. PATIENT ABLE TO MOVE RIGHT ARM AND LEG WHEN ASKED. ABLE TO BALANCE SELF WHILE SITTING ON SIDE OF BED. USES CALL LIGHT WITHIN REACH. FALL PRECAUTIONS IN PLACE.
--- NOTE | 2019-09-28 19:37 | NUR ---
PATIENT C/O BLADDER FEELING FULL. BLADDER SCAN SHOWED 628ML. TURNER CATHETER IRRIGATED WITHOUT DIFFICULTY WITH RETURN OF YELLOWISH URINE WITH SOME SEDIMENT. TURNER CATHETER CURRENTLY DRAINING CLEAR YELLOW URINE.
[2019-09-28 20:00] VITALS: BP 143/79
--- NOTE | 2019-09-29 05:27 | NUR ---
ASSUMED CARES AT 1920. ALERT AND ORIENTED. PLEASANT. TURNER CATHETER DD YELLOW URINE AFTER IT WAS IRRIGATED. PT DID FEEL ABD RELIEF WELL. PILLS WHOLE IN APPLESAUCE. APAP GIVEN FOR RIGHT ELBOW PAIN. ATE SNACK AT HS. SLEPT OFF AND ON. CALL LIGHT IN REACH AND BED ALARM ON.
[2019-09-29 08:00] VITALS: BP 131/80
--- NOTE | 2019-09-29 17:49 | NUR ---
ALERT AND ORIENTED X4. UP WITH 2 ASSIST AND GAIT BELT FOR PIVOT TRANSFERS. HAS BELOW THE KNEE AMPUTEE ON LEFT WITH PROSTHESIS. HAS CVA WITH RIGHT SIDED WEAKNESS. PLEASANT AND COOPERATIVE TODAY. USING PO PAIN MEDICATION TO HELP WITH RIGHT ARM AND BACK PAIN. TURNER CATHETER PATENT WITH CLEAR YELLOW URINE. USES CALL LIGHT WITHIN REACH. FALL PRECAUTIONS INPLACE, BED ALARM AND CHAIR ALARM USED.
[2019-09-29 19:30] VITALS: BP 118/72
--- NOTE | 2019-09-30 05:05 | NUR ---
ASSUMED CARES AT 1920. ALERT AND ORIENTED. CVA WITH RIGHT SIDE WEAKNESS. FLEXERIL GIVEN FOR LEFT ELBOW PAIN. TURNER CATHETER DD YELLOW URINE. AT 0400, PT HAD URINE LEAKAGE FROM PENIS. BLADDER SCAN SHOWED 250 CC. CATHETER WAS IRRIGATED AND BLADDER WAS ABLE TO EMPTY FULLY INTO BAG. PT SLEPT OFF AND ON. CALL LIGHT IN REACH AND BED ALARM ON.
[2019-09-30 08:01] VITALS: BP 141/82
--- NOTE | 2019-09-30 11:13 | NUR ---
TEST PILOT MET WITH THE PATIENT AND SISTER/DPOA (OTILIO) [phone]. EMAILED AND LEFT VOICEMAIL MESSAGE WITH [employer] (MEDICAID) [id number] TO INQUIRE ABOUT ELIGIBILITY AND BEGIN APPLICATION. SISTER STATES SHE CAN ALSO GO TO THE MEDICAID OFFICE TOMORROW SINCE TODAY IS A NATIONAL HOLIDAY AND CHECK INTO ELIGIBILITY AND BEGIN APPLICATION PROCESS. SHE WOULD LIKE TO TAKE THE PATIENT HOME AFTER LONGTERM SERVICES RENDERED BUT UNABLE TO WITH AMOUNT OF CARE NEEDED AT THIS TIME. TEST PILOT WILL LOOK INITO SNF'S WITH ASSISTED CARE CAPABILITY NEAR HER HOME.
--- NOTE | 2019-09-30 16:57 | NUR ---
ALERT AND ORIENTED X4. UP WITH 1-2 ASSIST AND GAIT BELT FOR PIVOT TRANSFERS. PO PAIN MEDICATION GIVEN FOR BACK AND RIGHT ARM PAIN. URINE IN TURNER CATH AFTER LUNCH SLIGHTLY BLOOD TINGED. TURNER CATH D/C ORDERED. WILL CHECK PVR AFTER 6 HOURS. HAS LEFT BKA WITH PROSTHESIS. USES CALL LIGHT WHEN NEEDING ASSIST. FALL PRECAUTIONS IN PLACE, BED ALARM AND CHAIR ALARM IN PLACE.
[2019-09-30 20:00] VITALS: BP 149/84
--- NOTE | 2019-10-01 05:31 | NUR ---
ASSUMED CARES AT 1920. ALERT AND ORIENTED. PT AGREEABLE TO TAKING MILK OF MAG FOR CONSTIPATION. MAX ASSIST X 2 PERSON. STAND AND PIVOT ONTO BSC TO VOID PER PT REQUEST. CURRENTLY, PT HAS VOIDED X 3 IN AMOUNTS OF 200-250 CC YELLOW URINE. PVR'S HAVE BEEN LESS THAN 20 CC. SLEPT LITTLE OFF AND ON. CALL LIGHT IN REACH AND BED ALARM ON.
[2019-10-01 08:00] VITALS: BP 153/77
--- NOTE | 2019-10-01 14:26 | NUR ---
ASSUMED CARE AT 0730. ALERT ORIENTED PLEASANT COOPERATIVE. HX OF CVA RT. SIDE WEAKNESS. WEARS PROSTHETIC L BKA OLD. PARTICIPATING IN THERAPIES. MEDICATED X 1 WITH TYLENOL 2 TABS BEFORE P.M. P.T. VOIDED X 3 THUS FAR. 300CCS AT 0755 100CCS AT 1055 AND 300CCS AT 1300. NURSE PRACTIONER WITH UROLOGY HERE AND REPORTED THE INFO TO HER WILL SCAN X 1 MORE THEN OK TO DC SCANS FOR PVR IF PVR IS LOW. AFO WILL BE ORDERED FOR RT. DEVANTE FROM [employer]. FEEDS SELF WITH SET UP L HAND. TAKES MEDS WITH APPLESAUCE WHOLE.1-2 AT A TIME.
--- NOTE | 2019-10-01 14:34 | NUR ---
CALLED AND FAXED REFERRALS TO FACILITIES THAT HAD HALF-WAY AND FUR TRIMMING MACHINE OPERATOR CARE BEDS. [facility], [facility] AND [facility] DID NOT HAVE ANY DETENTION CARE BEDS AVAILABLE. JIM/INTAKE AT [facility] [phone] WOULD POSSIBLY HAVE A BED AT THE END OF THE WEEK. DANIELE/INTAKE AT [facility] [phone] MAY HAVE A BED AVAILABLE BY THE END OF THE WEEK OR FIRST OF NEXT WEEK. UMA/INTAKE AT [facility] [phone] IS REVIEWING REFERRAL. ULI/INTAKE AT [facility] [phone] IS ONLY A HALF-WAY FACILITY BUT WOULD HAVE A BED AND STATED COULD HELP TRANSITION PATIENT TO A LTC FACILITY AFTER REHAB. SPOKE TO OTILIO (SISTER) [phone] AND SHE HAS APPLIED FOR MEDICAID TODAY AND SUPPORTIVE IN TRANSITIONING PATIENT TO SNF AND LTC FACILITY.
--- NOTE | 2019-10-01 16:43 | NUR ---
SPOKE WITH OVERHEAD DOOR TECHNICIAN [employer]OT[employer] RE RT. LE AFO ORDER PER P.T. THEY WILL SEE PT. ON 10/03/19. AT 1200 NOON TO MEASURE. PT. REQUESTS PO MOM AND A SUPPOSITORY AFTER SUPPER TONITE LAST BM WAS 09/28.
--- NOTE | 2019-10-01 18:53 | NUR ---
PT. VOIDED 550 IN BSC AND PERHAPS 100 ON FLOOR. BLADDER SCAN WAS 515CC STRAIGHT CATH WAS 400CCS CLEAR YELLOW URINE. DULCOLAX R SUPPOSITORY GIVEN AFTER SUPPER. MOM ALSO GIVEN.
--- NOTE | 2019-10-01 19:00 | NUR ---
PT. WILL CONTINUE TO NEED PVRS EVERY 6 HRS FOR NOW SEE UROLOGY ORDERS FOR OTHER ORDERS.
[2019-10-01 20:09] VITALS: BP 125/78
--- NOTE | 2019-10-02 06:28 | NUR ---
ASSUMED PT CARE AT 1930. PT ALERT AND ORIENTED X4, POLITE AND COOPERATIVE WITH CARES. PT HAD ONE LARGE STOOL THIS SHIFT. UP TO BSC WITH MAX ASSIST OF 2 PERSONS. STAND AND PIVOT ONTO BSC. CURRENTLY PT HAS VOIDED X2, ONCE IN THE AMOUNT OF 500 CC'S WITH NO RESIDUAL AND ONCE IN THE AMOUNT OF 350CC'S WITH 50 RESIDUAL. PT SLEPT VERY LITTLE OVERNIGHT, HE STATED HE IS WORRIED ABOUT WHERE HIS PLACEMENT WILL BE WHEN HE IS DISCHARGED. PT IS ALSO WORRIED ABOUT WHETHER HE WILL QUALIFY FOR MEDICAID HE PRESENTLY ONLY HAS MEDICARE. USES CALL LIGHT APPROPRIATELY. BED ALARM ON FOR SAFETY. HOURLY ROUNDING IN PROGRESS, WILL CONTINUE TO MONITOR.
[2019-10-02 08:32] VITALS: BP 130/69
--- NOTE | 2019-10-02 10:25 | NUR ---
CALLED [employer]T PEACE/PATIENT DECAL MAKER FOR [facility] TO OFFER SUPPORT AND ASSIST WITH THE MEDICAID PROCESS. [phone]
--- NOTE | 2019-10-02 13:38 | NUR ---
FAXED REFERRAL TO [facility] [phone]. CONFIRMED WITH [facility] THAT THEY HAVE A SKILLED BED AVAILABLE AND PATIENT WOULD TRANSITION INTO THEIR [facility]OUNDATION RELATIONS DIRECTOR CARE AFTER DISCHARGE OF REHAB SERVICES. VIANEY/LIAISON WILL MAKE AN APPOINTMENT TO COME SEE THE PATIENT TO DISCUSS SERVICES AND FACILITY.
--- NOTE | 2019-10-02 16:00 | NUR ---
[facility]EL[facility] HERE TO VISIT PT.. SHE CALLED AND LEFT A VM THAT THEY COULD ACCEPT PT.TO A SNF BED AT DISCHARGE AND WOULD HAVE A LTC BED ALSO,ONCE MEDICAID AUTH COME THROUGH. SISTER,OTILIO, AT NURSES STATION NOW WITH QUESTIONS. INFORMED OF ABOVE. SHE SAID SHE WENT TO [facility] IN [facility] AND THEY ARE DUMPS. SHE WAS ASKING ABOUT FACILITIES THAT HAVE THEIR OWN VAN SO PT.NOT CHARGED EACH TIME HE HAS AN APPT.,ETC. SHE SAID SHE HAS BEEN WORKING ON THIS EVERY DAY SINCE HER BROTHER HAD HIS STROKE. SHE SAID SHE IS VERY TIRED. TOLD HER OANH/RESOURCE DEVELOPMENT MANAGER WILL CALL HER IN AM TO DISCUSS FACILITIES. PLANNED DISCHARGE DATE IS 10/04 PER TEAM CONFERENCE MEETING.
--- NOTE | 2019-10-02 16:14 | NUR ---
pt has participated with therapies and calls for assist as needed. pt transferrs with max of 2 with nursing and queing with prostesis on and gairbelt and walker.pt is alert and orientated and verbalizes worring about where he will discharge to. pt has been able to void large amounts 400ml-360ml with 160-76 ml per bladder scan. prn for general aches.pt has had bm this am on commode.pt eats lunch in dinningroom.
[2019-10-02 19:15] VITALS: BP 150/89
--- NOTE | 2019-10-03 01:40 | NUR ---
ASSUMED CARE @ 1906-.AWAKE IN BED W/ HOB UP WATCHING TV.RUE ALREADY UP ON PILLOW.BED ALARM ALREADY ON @ 1906.HS MEDS GIVEN W/ APPLE SAUCE.ASSISTED W/ DENTURE CARE @ 2149.WANTS TO TAKE HS MELATONIN & AMBIEN LATE CLOSE TO 2199 & BOTH GIVEN @ 2158.REQUESTED DIET SPRITE W/ ICE & TURKEY SANDWICH @ 0115 & GIVEN.ON HOURLY ROUNDS.BUTCHER ASSISTANT DOING ODD HOUR ROUNDS.
--- NOTE | 2019-10-03 05:01 | NUR ---
SLEPT LATE @ 0000-10/03-.CONSTANTLY RN PLASTIC SURGERY LIGHT X6 WHEN AWAKE.REQUESTED ACCUCHECK @ [id number].PRN FLEXERIL GIVEN ORAL @ 0334.BUT AWAKE @ 0200.SLEEPING @ 0400 AFTER TAKING FLEXERIL.TOOK BRITTNEY CRACKERS ONE PACKAGE W/ PEANUT BUTTER @ & @ 0115-DIET SPRITE & TURKEY SANDWICH.USED URINAL X3.CALLS TO EMPTY URINAL @ NIGHT.
[2019-10-03 08:03] VITALS: BP 138/78
--- NOTE | 2019-10-03 15:38 | NUR ---
PER [employer], PT IS PENDING [place] MEDICAID, THEY WILL FOLLOW CASE TO COMPLETION
--- NOTE | 2019-10-03 15:55 | NUR ---
PT HAS WORKED WITH THERAPIES TODAY AND CALLS FOR ASSIST WITH TRANSFERRS AND NEEDS. PRN FOR PAIN AND MUSCLE TONE GIVEN TODAY WITH GOOD EFFECT. PT HAS BEEN CONTINENT OF BLADDER AND VOIDS WELL. AM VOID WAS 400 WITH 67 RESIDUAL,PT REPORTS NO DISCOMFORT.SISTER HERE TODAY HELPING PT ARRANGE FOR DISCHARGE TO SKILLED.
--- NOTE | 2019-10-03 16:24 | NUR ---
CONFIRMED WITH VIANEY/LIAISON AT [facility] [phone] THAT THEY DO NOT HAVE A BED AVAILABLE. CALLED AND FAXED REFERRAL TO SAJAN/ALAYNA AT [facility] [phone] AND THEY HAVE A BED AVAILABLE. THEY WILL REVIEW AND GET BACK TO ME. NOTED THAT PATIENT WILL BE DISCHARGED TOMORROW.
[2019-10-03 17:35] LABS: ABSOLUTE BASOPHILS 0.1 thou/uL (0.0-0.2); ABSOLUTE EOSINOPHILS 0.2 thou/uL (0.0-0.7); ABSOLUTE LYMPHOCYTES 1.5 thou/uL (0.8-5.3); ABSOLUTE MONOCYTES 0.5 thou/uL (0.0-1.2); ABSOLUTE NEUTROPHILS 4.2 thou/uL (1.6-8.1); BASOPHILS 0.8 %; EOSINOPHILS 3.8 %; HEMATOCRIT 35.8 % (42.0-52.0); HEMOGLOBIN 12.4 gm/dL (14.0-18.0); LYMPHOCYTES 22.7 %; MCH 29.7 pg (26.0-34.0); MCHC 34.7 g/dL (28.0-37.0); MCV 85.7 fL (80.0-100.0); MONOCYTES 7.4 %; MPV 7.1 fl. (7.2-11.1); NUCLEATED RBCS 0 /100WBC; PLATELET COUNT* 280 thou/uL (150-400); POLYS 65.3 %; RBC 4.18 mil/uL (4.50-6.00); RDW-CV 14.9 % (10.5-14.5); WBC 6.4 thou/uL (4.0-11.0)
[2019-10-03 17:47] LABS: ALBUMIN 2.8 g/dL (3.4-5.0); CALCIUM 8.6 mg/dL (8.5-10.1); CREATININE 2.2 mg/dL (0.6-1.3); MAGNESIUM 2.7 mg/dL (1.8-2.4); POTASSIUM 4.6 mmol/L (3.5-5.1); TOTAL BILIRUBIN 0.2 mg/dL (<0.1-1.0); TOTAL PROTEIN 6.7 g/dL (6.4-8.2)
[2019-10-03 18:55] LABS: ESR (SEDRATE) 50 mm/hr (0-20)
[2019-10-03 20:00] VITALS: BP 137/76
[2019-10-03 20:52] LABS: URINE BILIRUBIN NEGATIVE (Negative); URINE BLOOD NEGATIVE (Negative); URINE CLARITY CLEAR; URINE COLOR YELLOW; URINE GLUCOSE-RANDOM TRACE (Negative); URINE KETONES NEGATIVE (Negative); URINE LEUKOCYTES NEGATIVE (Negative); URINE NITRITE NEGATIVE (Negative); URINE PROTEIN 3+ (Negative); URINE UROBILINOGEN 0.2 E.U./dl (0.2-1.0)
[2019-10-03 21:13] LABS: MUCUS None Seen strn/LPF (None Seen); SQUAMOUS 0-3 Few /LPF (0-3)
[2019-10-03 21:14] LABS: URINE WBC 6-15 Few /HPF (0-5)
[2019-10-03 21:15] LABS: BACTERIA None Seen /HPF (None Seen); CRYSTALS None Seen /LPF (None Seen); URINE RBC 0-2 Rare /HPF (0-2)
--- NOTE | 2019-10-04 05:00 | NUR ---
ASSUMED CARES AT 1920. ALERT AND ORIENTED. WORRIED ABOUT WHERE HE WILL BE D/C TO. USED URINAL OVERNIGHT. BEDTIME SNACK GIVEN. SLEPT SOME. CALL LIGHT IN REACH AND BED ALARM ON.
[2019-10-04 07:00] VITALS: BP 143/79
--- NOTE | 2019-10-04 11:33 | NUR ---
CONFIRMED WITH SAJAN/ALAYNA AT [facility] THAT THEY HAVE ACCEPTED PATIENT AND HAVE A SNF BED AVAILABLE TODAY, 10/04/19. THEY HAVE SET UP A W/C VAN FOR TRANSPORTATION BETWEEN 2:30-3:00. [facility] NOTIFIED. LEFT VOICE MAIL MESSAGE FOR OTILIO (SISTER/DPOA) [phone]. WILL DISCUSS WITH THE PATIENT AND REACH OUT TO THE SISTER REGARDING FINAL DISCHARGE ARRANGEMENTS.
[2019-10-04] MEDS ORDERED: AMBIEN5 MG PO (13:58)
[2019-10-04] MEDS ORDERED: FLEXERIL PO (14:00)
[2019-10-04] MEDS ORDERED: IPRAT-ALBUT 0.5-3 ML INH (14:04)
[2019-10-04] MEDS ORDERED: FLOMAX0.4 MG PO (14:06)
[2019-10-04] MEDS ORDERED: MARINOL 2.5 MG2.5 M1 PO (14:07)
[2019-10-04] MEDS ORDERED: LISINOPRIL2.5 MG PO (14:09)
[2019-10-04] MEDS ORDERED: REMERON15 M2 PO (14:11)
[2019-10-04 14:20] VITALS: BP 143/79
--- NOTE | 2019-10-04 14:54 | NUR ---
PATIENT DISCHARGED TO [facility] VIA W/C VAN. SISTER WITH PATIENT. PATIENT IN NO ACUTE DISTRESS OR PAIN. REPORT GIVEN TO LUKE. SHE WAS NOTIFIED OF MOST RECENT ASSESSMENT, V/S AND MOST RECENT ABNORMAL LABS. SHE WAS NOTIFIED OF RIGHT FOOT BRACE, LEFT LEG PROTHESIS, AND SLING FOR RIGHT ARM. PATIENT ALERT AND ORIENTED. WRITTEN RX FOR AMBIEN, CYCLOBENZAPRINE, AND MARINOL SENT WITH PATIENT.
== END 2019-10-04 15:00 | DRG 56 ==
LOC: M.REH 16:33
PROVIDERS: Family Medicine; Internal Medicine; Nurse Practitioner Adult Health; ADMIT Physical Medicine & Rehabilitation
DX: I69.351 Hemiplegia and hemiparesis following cerebral infarction affecting right dominant side (principal); I63.9 Cerebral infarction, unspecified; G93.41 Metabolic encephalopathy; J69.0 Pneumonitis due to inhalation of food and vomit; I25.10 Atherosclerotic heart disease of native coronary artery without angina pectoris; E78.5 Hyperlipidemia, unspecified; E11.51 Type 2 diabetes mellitus with diabetic peripheral angiopathy without gangrene; I12.9 Hypertensive chronic kidney disease with stage 1 through stage 4 chronic kidney disease, or unspecified chronic kidney disease; E11.22 Type 2 diabetes mellitus with diabetic chronic kidney disease; N18.3 Chronic kidney disease, stage 3 (moderate); F41.9 Anxiety disorder, unspecified; F32.9 Major depressive disorder, single episode, unspecified; F17.210 Nicotine dependence, cigarettes, uncomplicated; R33.8 Other retention of urine; N40.1 Benign prostatic hyperplasia with lower urinary tract symptoms; K59.00 Constipation, unspecified; Z95.5 Presence of coronary angioplasty implant and graft; Z89.512 Acquired absence of left leg below knee